=== PATIENT | female | born 2000 ===

== ENCOUNTER 2020-12-14 08:01 | Emergency (ER) | payer MEDICAID, SELFPAY ==
--- NOTE | ~2020-12-14 | CT_ITS ---
EXAMINATION: CT HEAD WITHOUT CONTRAST CLINICAL INFORMATION: 2 episodes of fainting/syncope. COMPARISON: None TECHNIQUE: Contiguous axial imaging was performed from the skull base to vertex without intravenous administration of contrast. Additional 2-D coronal and sagittal reformatted images are generated on the CT workstation and uploaded to PACS. This CT examination was performed using dose optimization techniques as appropriate, variously including the following: *Automated exposure control *Adjustment of mA and/or kV according to patient size (this includes techniques or standardized protocols for targeted exams where dose is matched to indication/reason for exam; i.e. extremities or head) *Use of iterative reconstruction technique DLP: 603 mGy-cm FINDINGS: There is no intracranial hemorrhage, hematoma, or extra-axial fluid collection. The ventricles are normal in size. There is no hydrocephalus, edema, or mass effect. The salgado-white matter differentiation appears symmetric. There is no visible acute territorial infarct or mass lesion. The calvarium appears intact. There is no pneumocephalus or orbital emphysema. The visualized sinuses and middle ears and mastoid air cells show no significant mucosal thickening. There are no air-fluid levels. CT/CT head/brain wo con IMPRESSION: Normal study.
--- NOTE | ~2020-12-14 | XR_ITS ---
EXAMINATION: XR CHEST CLINICAL INFORMATION: Chest pain, shortness of breath. Upper abdominal pain. Fainting episodes. COMPARISON: None TECHNIQUE: Portable upright AP view of the chest was obtained. FINDINGS: The lungs are clear. There is no airspace consolidation. No pneumothorax or pleural reaction or effusion. No free air beneath the diaphragms. The heart is normal in size. The hilar and mediastinal contours and visualized bony structures are unremarkable. XR/XR chest 1V IMPRESSION: Unremarkable examination.
--- NOTE | ~2020-12-14 | US_ITS ---
EXAMINATION: US ABDOMEN LIMITED CLINICAL INFORMATION: Upper abdominal pain for 3 days. COMPARISON: None TECHNIQUE: Real-time imaging of the right upper quadrant abdominal viscera. FINDINGS: PANCREAS: The visualized pancreas is normal in size and contour and echogenicity. There is no pancreatic ductal distention or retroperitoneal effusion. Portion pancreatic tail obscured by bowel gas and not completely imaged. LIVER: Normal. The liver is normal in size. The liver contour is normal. Parenchymal echogenicity is normal. No focal hepatic lesion. There is no intrahepatic biliary duct dilatation seen. Color Doppler shows portal flow towards the liver. GALLBLADDER: Normal. The gallbladder is physiologically distended without evidence of stones, sludge, polyps, wall thickening or pericholecystic fluid. Negative sonographic Rodriguez's sign. COMMON BILE DUCT: Normal in caliber measuring 0.4 cm in diameter. RIGHT KIDNEY: Normal. No hydronephrosis. No renal calculi or focal parenchymal lesions. The kidney measures 10.2 cm in maximum dimension. FREE FLUID: None. US/US abdomen limited IMPRESSION: Normal study.
[2020-12-14 08:06] VITALS: BP 142/78; PULSE 98; RESP 16; TEMP 36.6; O2SAT 98; BMI 26.2
--- NOTE | 2020-12-14 08:33 | ECG_ITS ---
Test Reason : ABDOMINAL PAIN Blood Pressure : / mmHG Vent. Rate : 074 BPM Atrial Rate : 074 BPM P-R Int : 150 ms QRS Dur : 074 ms QT Int : 376 ms P-R-T Axes : 064 059 041 degrees QTc Int : 417 ms Normal sinus rhythm with sinus arrhythmia Normal ECG No previous ECGs available Referred By: Frieda Pereira Electronically Signed By:CONSUELO JOAQUIN MD
--- NOTE | 2020-12-14 09:04 | ED_ITS ---
HPI - Abdominal Pain General Chief Complaint: Abdominal Pain Stated Complaint: ABD PAIN Time Seen by Provider: 12/14/20 08:24 Source: patient Mode of arrival: ambulatory Limitations: no limitations History of Present Illness HPI narrative: 20-year-old female with no significant past medical history presenting to the ED with complaints of nausea/vomiting/diarrhea with upper abdominal pain and 2 fainting episodes over the past 3 days where she felt like she lost her breath for about 5 minutes and she also noted stabbing left-sided chest pain. She reports that this initially started approximately 3 days ago when she ate some greasy pizza she started having some abdominal pain and some diarrhea then she went back home and ate some pasta and started having some nausea vomiting she reports she was not feeling well therefore she laid down in her bed and at this time she passed out for approximately 5-8 minutes. She reports she knows that she passed out because her vision went completely black and she had ringing in her ears. She reports that the diarrhea although the upper abdominal pain is still present. She reports that this morning when she woke up from her bed she did not feel her normal self and she had another fainting episode when she went to get up from the bed for approximately 5-8 minutes where her vision went black and her ears were ringing and she felt like she cannot catch her breath. She also reports a dry cough for the past few days. She reports approximately 2 years ago she had similar episodes to this where she would be in the shower and she would pass out and her father would be in her face with a fan. She reports that her grandmother told her that they have a family history of low blood pressures. She denies any fevers, chills, dizziness, headaches, neck pain/stiffness, head trauma, falls, dyspnea on exertion/orthopnea, palpitations, radiation of the abdominal pain, back pain, dysuria, hematuria, black or bloody stools, black or bloody emesis, recent travel or sick contacts, history of DVT or PE, any estrogen uses, recent immobilization or surgery, recent travel on a plane/train/car ride, history of cancer, lower extremity edema or calf tenderness, any drug usage such as IV drugs or any other complaints or concerns at this time. She denies any sick contacts. She denies being on any blood thinners. MD elicited complaint: abdominal pain Onset (ago): day(s) (Three days) Pain Consistency: constant (The abdominal pain has been constant) Location: epigastric, LUQ and RUQ Severity: mild Quality: aching Radiation: none Migration to: no migration Exacerbating factors: nothing Relieving factors: nothing Associated symptoms: nausea, vomiting, diarrhea and other (Cough, left-sided chest pain, shortness of breath, two fainting episodes) Related Data Previous Rx's Medication Instructions Recorded hydroxyzine HCl 25 mg tablet 25 mg PO Q8H PRN #10 tab 12/14/20 ondansetron HCl 4 mg tablet 4 mg PO Q8H PRN #14 tab 12/14/20 (Zofran) Allergies Allergy/AdvReac Type Severity Reaction Status Date / Time No Known Allergies Allergy Verified 12/14/20 08:33 Review of Systems Review of Systems Constitutional : No Weight loss, No Fever, No Chills, No Night Sweats, No Fatigue, No Malaise ENT/Mouth : No Hearing loss, No Ear Pain, No Nasal Congestion, No Sinus Pain, No Hoarseness, No sore throat, No Rhinorrhea, No Swallowing Difficulty Eyes: No Eye Pain, No Swelling, No Redness, No Foreign Body, No Discharge, No Vision Changes Cardiovascular : Positive chest pain with shortness of breath, No Dyspnea on Exertion, No Orthopnea, No Edema, No Palpitations Respiratory : Positive Cough, No Sputum, No Wheezing, No Smoke Exposure, No Dyspnea Gastrointestinal : Positive Nausea, positive Vomiting, positive Diarrhea, No Constipation, positive abdominal Pain, No Hematochezia, No Melena Genitourinary : no irregular bleeding, No Dysuria, No Urinary Frequency, No Hematuria, No Urinary Incontinence, No Urgency, No Flank Pain, No Urinary Flow Changes, No Hesitancy Musculoskeletal : No joint pain, No Myalgias, No Joint Swelling Skin : No Skin Lesions, No rash Neuro : Positive syncopal episodes with loss of consciousness, no head injury, not on any blood thinners, No Weakness, No Numbness, No Paresthesias, No Dizziness, No Headache Psych : No Anxiety/Panic, No Depression, No SI/HI/AH/VH, No Social Issues, Heme/Lymph: No Bruising, No Bleeding,No Lymphadenopathy Endocrine : No Polyuria, No Polydipsia, No Temperature Intolerance Yes all other systems are reviewed and are negative Physical Exam Vital Signs: Vital Signs: Last Vital Signs Temp 99.1 F 12/14/20 09:10 Pulse 76 12/14/20 11:29 Resp 16 12/14/20 09:10 BP 116/70 12/14/20 11:29 Pulse Ox 99 12/14/20 11:29 Body Mass Index 26.2 vital signs have been reviewed as normal and appeared to be correct. Blood pressure normal. Heart rate normal. Respiration rate normal. Temperature normal. Oxygen saturation normal. Appearance: Alert. Oriented X3. No acute distress. Head: Normal external exam. Normocephalic. Atraumatic. Able to rotate head bilaterally. Eyes: PERRLA. EOMI. No nystagmus noted. Conjunctiva and sclera normal. Eyelids normal. Corneal reflex normal. ENT: EAC normal. TM's Normal. Hearing normal. Pharynx normal. Uvula midline. tongue midline. Moist mucous membranes. No trismus noted. No drooling noted. No muffled voice noted. No nystagmus noted. Neck: Normal inspection. Neck supple. FROM. No adenopathy. Trachea midline. Thyroid Normal. No meningeal signs. No neck mass noted. CVS: Normal heart rate and rhythm. Heart sound normal. No murmurs noted. Pulses normal throughout. Respiratory: No respiratory distress. Painless inspiration. Breath sounds normal. No wheezes/rales/rhonchi noted. Chest nontender. No accessory muscle usage noted or decreased air movement noted. Abdomen: Soft and mild sinus up patient to epigastric/left upper quadrant/right upper quadrant of the abdomen. Nondistended. No guarding. No rigidity. Bowel sounds normal in all 4 quadrants. No distention noted. No organomegaly noted. No visible injury noted. No rebound tenderness. Negative Rovsing sign. Negative obturator's sign. Negative psoas sign. Negative Rodriguez sign. Back: No CVA tenderness. Full range of motion noted. Skin: Skin warm and dry. Normal skin color. Normal skin turgor. No rashes/lesions/lacerations noted. Extremities: No lower extremity edema. Extremities exhibit normal range of motion. Extremities nontender. Able to shrug shoulders bilaterally and keep up against resistance. Neuro: Oriented X 3. No motor deficit. No sensory deficit. Reflexes normal. Moving all extremities. No focal motor deficits. Cranial nerves II-XI intact bilaterally. Facial strength normal. Normal cognition. Speech normal. Gait normal. Strength 5/5 throughout. No tremor noted. No fasciculations noted. No rigidity noted. Muscle tone normal throughout. No asterixis noted. Vascular: + radial pulses/+ 2 distal pedal pulses/+2 dorsalis pedis b/l. Normal cap refill. No cyanosis noted to upper extremity nails and lower extremity toes nails. Course Course Course Narrative: 8:30am - 20-year-old female with no significant past medical history presenting to the ED with complaints of nausea/vomiting/diarrhea with upper abdominal pain and 2 fainting episodes that last approximately 5-8 minutes were all she sees is black and has ringing in her ears over the past 3 days where she felt like she lost her breath for about 5-8 minutes and she also noted stabbing left-sided chest pain. She reports associated cough. On exam patient is alert and oriented x3. Not in any acute distress. No focal neuro deficit noted. Vital signs are stable within normal limits. Lungs clear to auscultation. CV RRR. Abdomen is soft and nontender. No CVA tenderness is noted. No lower extremity edema is noted. No calf tenderness is noted. Plan: Labs, chest x-ray, D-dimer, EKG, test, orthostatic vitals, abdominal ultrasound, CT scan of brain if negative and possibly a CTA of chest for PE if elevated D-dimer, provided a L of IV fluids then re-evaluate. Reevaluation(s) Reevaluation #1: - labs Returned all within normal limits. Serum quant negative. UA negative for UTI. Patient positive for marijuana negative for all other drugs. Negative for COVID. - CT scan of brain without contrast negative for any acute processes. Abdominal ultrasound negative for any acute processes. Chest x-ray negative for any acute processes. - therefore patient most likely viral syndrome and vasovagal syncope no indication to admit the patient at this time will DC home with instructions to follow-up with her primary care provider and with possibly Neurology and to ret urn if any new or worsening symptoms. Patient understands agrees with this plan. Time: 11:59 MDM - Abdominal Pain Medical Records Attestation: I reviewed the patient's medical records. Lab Data Attestation: I reviewed the patient's lab results. Result diagrams: 12/14/20 10:03 12/14/20 10:03 Labs: Lab Results 12/14/20 12/14/20 12/14/20 Range/Units 10:02 10:03 10:03 WBC 9.6 (4.8-10.8) X10*3/uL RBC 4.47 (4.20-5.50) X10*6/uL Hgb 13.0 (12.0-16.0) g/dl Hct 38.8 (37.0-47.0) % MCV 86.8 (80.0-98.0) fL MCH 29.1 (27.0-33.0) pg MCHC 33.5 (31.0-35.0) g/dl RDW 13.3 (11.0-16.0) % Plt Count 261 (160-400) X10*3/uL MPV 10.1 (9.4-12.3) fL Immature Gran % (Auto) 0.2 (0.0-0.4) % Neut % (Auto) 69.3 (45-73) % Lymph % (Auto) 23.0 (20-40) % Mercer % (Auto) 6.6 (2-11) % Eos % (Auto) 0.7 (0-4) % Baso % (Auto) 0.2 (0-2) % Lymph # (Auto) 2.2 (1.2-4.9) X10*3/uL Mercer # (Auto) 0.6 (0.1-1.2) X10*3/uL Eos # (Auto) 0.1 (0.0-0.4) X10*3/uL Baso # (Auto) 0.0 (0.0-0.2) X10*3/uL Abs Immat Gran (auto) 0.02 (0.00-0.03) X10*3/uL Absolute Neuts (auto) 6.61 (2.0-8.3) x10*3/uL Absolute Nucleated RBC 0.000 (0.0-0.012) X10*3/uL Nucleated RBC % (auto) 0.0 (0.0-0.2) /100WBC PT 12.1 (9.9-13.0) SEC INR 1.1 (0.9-1.1) D-Dimer < 200 NG/ML Sodium (135-145) mmol/L Potassium (3.3-5.1) mmol/L Chloride (96-108) mmol/L Carbon Dioxide (22-29) mmol/L Anion Gap (12-20) BUN (9-16) mg/dL Creatinine (0.5-1.4) mg/dL Estim Creat Clear Calc Estimated GFR Random Glucose (60-115) mg/dL Calcium (8.4-10.2) mg/dL Magnesium (1.6-2.6) mg/dL Total Bilirubin (0.0-1.0) mg/dL AST (5-31) U/L ALT (0-31) U/L Alkaline Phosphatase (39-117) U/L Total Creatine Kinase (26-140) U/L Troponin I High Sens (<3.5-17.0) ng/L Total Protein (6.5-8.0) g/dL Albumin (3.5-5.0) g/dL Lipase (8-78) U/L Beta HCG, Quant mIU/mL Urine Color YELLOW Urine Appearance HAZY Urine pH 8.0 (5.0-8.0) Ur Specific [place] 1.010 (1.005-1.025) Urine Protein NEG (NEG-TRACE) MG/DL Urine Glucose (UA) NEG (NEG) MG/DL Urine Ketones NEG (NEG) MG/DL Urine Blood NEG (NEG) Urine Nitrite NEG (NEG) Ur Leukocyte Esterase NEG (NEG) Urine Opiates Screen (Not Detect) Urine Fentanyl Screen (Not Detect) Ur Barbiturates Screen (Not Detect) Ur Phencyclidine Scrn (Not Detect) Ur Amphetamines Screen (Not Detect) U Benzodiazepines Scrn (Not Detect) Urine Cocaine Screen (Not Detect) U Marijuana (THC) Screen (Not Detect) COVID-19 (ODALYS) (Negative) COVID-19 Clin Com 12/14/20 12/14/20 12/14/20 Range/Units 10:03 10:03 10:03 WBC (4.8-10.8) X10*3/uL RBC (4.20-5.50) X10*6/uL Hgb (12.0-16.0) g/dl Hct (37.0-47.0) % MCV (80.0-98.0) fL MCH (27.0-33.0) pg MCHC (31.0-35.0) g/dl RDW (11.0-16.0) % Plt Count (160-400) X10*3/uL MPV (9.4-12.3) fL Immature Gran % (Auto) (0.0-0.4) % Neut % (Auto) (45-73) % Lymph % (Auto) (20-40) % Mercer % (Auto) (2-11) % Eos % (Auto) (0-4) % Baso % (Auto) (0-2) % Lymph # (Auto) (1.2-4.9) X10*3/uL Mercer # (Auto) (0.1-1.2) X10*3/uL Eos # (Auto) (0.0-0.4) X10*3/uL Baso # (Auto) (0.0-0.2) X10*3/uL Abs Immat Gran (auto) (0.00-0.03) X10*3/uL Absolute Neuts (auto) (2.0-8.3) x10*3/uL Absolute Nucleated RBC (0.0-0.012) X10*3/uL Nucleated RBC % (auto) (0.0-0.2) /100WBC PT (9.9-13.0) SEC INR (0.9-1.1) D-Dimer NG/ML Sodium 141 (135-145) mmol/L Potassium 3.5 (3.3-5.1) mmol/L Chloride 106 (96-108) mmol/L Carbon Dioxide 26 (22-29) mmol/L Anion Gap 13 (12-20) BUN 6 L (9-16) mg/dL Creatinine 0.67 (0.5-1.4) mg/dL Estim Creat Clear Calc 104.6 Estimated GFR > 60 Random Glucose 88 (60-115) mg/dL Calcium 9.0 (8.4-10.2) mg/dL Magnesium 2.0 (1.6-2.6) mg/dL Total Bilirubin 0.4 (0.0-1.0) mg/dL AST 13 (5-31) U/L ALT 6 (0-31) U/L Alkaline Phosphatase 54 (39-117) U/L Total Creatine Kinase 70 (26-140) U/L Troponin I High Sens < 3.5 (<3.5-17.0) ng/L Total Protein 7.0 (6.5-8.0) g/dL Albumin 4.4 (3.5-5.0) g/dL Lipase 20 (8-78) U/L Beta HCG, Quant < 2 mIU/mL Urine Color Urine Appearance Urine pH (5.0-8.0) Ur Specific [place] (1.005-1.025) Urine Protein (NEG-TRACE) MG/DL Urine Glucose (UA) (NEG) MG/DL Urine Ketones (NEG) MG/DL Urine Blood (NEG) Urine Nitrite (NEG) Ur Leukocyte Esterase (NEG) Urine Opiates Screen (Not Detect) Urine Fentanyl Screen (Not Detect) Ur Barbiturates Screen (Not Detect) Ur Phencyclidine Scrn (Not Detect) Ur Amphetamines Screen (Not Detect) U Benzodiazepines Scrn (Not Detect) Urine Cocaine Screen (Not Detect) U Marijuana (THC) Screen (Not Detect) COVID-19 (ODALYS) (Negative) COVID-19 Clin Com 12/14/20 12/14/20 Range/Units 10:03 10:03 WBC (4.8-10.8) X10*3/uL RBC (4.20-5.50) X10*6/uL Hgb (12.0-16.0) g/dl Hct (37.0-47.0) % MCV (80.0-98.0) fL MCH (27.0-33.0) pg MCHC (31.0-35.0) g/dl RDW (11.0-16.0) % Plt Count (160-400) X10*3/uL MPV (9.4-12.3) fL Immature Gran % (Auto) (0.0-0.4) % Neut % (Auto) (45-73) % Lymph % (Auto) (20-40) % Mercer % (Auto) (2-11) % Eos % (Auto) (0-4) % Baso % (Auto) (0-2) % Lymph # (Auto) (1.2-4.9) X10*3/uL [place] # (Auto) (0.1-1.2) X10*3/uL Eos # (Auto) (0.0-0.4) X10*3/uL Baso # (Auto) (0.0-0.2) X10*3/uL Abs Immat Gran (auto) (0.00-0.03) X10*3/uL Absolute Neuts (auto) (2.0-8.3) x10*3/uL Absolute Nucleated RBC (0.0-0.012) X10*3/uL Nucleated RBC % (auto) (0.0-0.2) /100WBC PT (9.9-13.0) SEC INR (0.9-1.1) D-Dimer NG/ML Sodium (135-145) mmol/L Potassium (3.3-5.1) mmol/L Chloride (96-108) mmol/L Carbon Dioxide (22-29) mmol/L Anion Gap (12-20) BUN (9-16) mg/dL Creatinine (0.5-1.4) mg/dL Estim Creat Clear Calc Estimated GFR Random Glucose (60-115) mg/dL Calcium (8.4-10.2) mg/dL Magnesium (1.6-2.6) mg/dL Total Bilirubin (0.0-1.0) mg/dL AST (5-31) U/L ALT (0-31) U/L Alkaline Phosphatase (39-117) U/L Total Creatine Kinase (26-140) U/L Troponin I High Sens (<3.5-17.0) ng/L Total Protein (6.5-8.0) g/dL Albumin (3.5-5.0) g/dL Lipase (8-78) U/L Beta HCG, Quant mIU/mL Urine Color Urine Appearance Urine pH (5.0-8.0) Ur Specific [place] (1.005-1.025) Urine Protein (NEG-TRACE) MG/DL Urine Glucose (UA) (NEG) MG/DL Urine Ketones (NEG) MG/DL Urine Blood (NEG) Urine Nitrite (NEG) Ur Leukocyte Esterase (NEG) Urine Opiates Screen Not Detected (Not Detect) Urine Fentanyl Screen Not Detected (Not Detect) Ur Barbiturates Screen Not Detected (Not Detect) Ur Phencyclidine Scrn Not Detected (Not Detect) Ur Amphetamines Screen Not Detected (Not Detect) U Benzodiazepines Scrn Not Detected (Not Detect) Urine Cocaine Screen Not Detected (Not Detect) U Marijuana (THC) Screen POSITIVE H (Not Detect) COVID-19 (ODALYS) Negative (Negative) COVID-19 Clin Com See Note Imaging Data Chest x-ray: Attestation: I personally reviewed and interpreted this imaging study as follows: Radiologist's impression: FINDINGS: The lungs are clear. There is no airspace consolidation. No pneumothorax or pleural reaction or effusion. No free air beneath the diaphragms. The heart is normal in size. The hilar and mediastinal contours and visualized bony structures are unremarkable. XR/XR chest 1V IMPRESSION: Unremarkable examination. CT scan of brain without contrast: Attestation: I personally reviewed and interpreted this imaging study as follows: Radiologist's impression: FINDINGS: There is no intracranial hemorrhage, hematoma, or extra-axial fluid collection.? The ventricles are normal in size. There is no hydrocephalus, edema, or mass effect.? The salgado-white matter differentiation appears symmetric.? There is no visible acute territorial infarct or mass lesion. The calvarium appears intact. There is no pneumocephalus or orbital emphysema.? The visualized sinuses and middle ears and mastoid air cells show no significant mucosal thickening. There are no air-fluid levels. CT/CT head/brain wo con IMPRESSION: Normal study. Abdominal ultrasound: Attestation: I personally reviewed and interpreted this imaging study as follows: Radiologist's impression: FINDINGS: PANCREAS: The visualized pancreas is normal in size and contour and echogenicity. There is no pancreatic ductal distention or retroperitoneal effusion. Portion pancreatic tail obscured by bowel gas and not completely imaged. LIVER: Normal. The liver is normal in size. The liver contour is normal. Parenchymal echogenicity is normal. No focal hepatic lesion. There is no intrahepatic biliary duct dilatation seen. Color Doppler shows portal flow towards the liver. GALLBLADDER: Normal. The gallbladder is physiologically distended without evidence of stones, sludge, polyps, wall thickening or pericholecystic fluid. Negative sonographic Rodriguez's sign. COMMON BILE DUCT: Normal in caliber measuring 0.4 cm in diameter. RIGHT KIDNEY: Normal. No hydronephrosis. No renal calculi or focal parenchymal lesions. The kidney measures 10.2 cm in maximum dimension. FREE FLUID: None. US/US abdomen limited IMPRESSION: Normal study. ECG Data Attestation: I personally reviewed and interpreted this ECG as follows: ECG interpretation date: 12/14/20 ECG interpretation time: 09:03 Interpretation: Normal sinus rhythm with sinus arrhythmia with a ventricular rate of 74 with a normal UT interval normal QRS duration normal QT/QTC interval. No acute ischemic changes are noted. No prior EKGs in our system to compare to at this time. Critical Care Time Critical Care Time Critical Care Time: Yes Total Critical Care Time: 60 Attestation: I personally attest to this time spent taking care of the patient Discharge Plan Discharge Clinical Impression: Syncope, Abdominal pain, Nausea & vomiting, Diarrhea, Atypical chest pain Patient Disposition: Home, Self-Care Instructions: Syncope (ED), Acute Nausea and Vomiting (ED), Acute Diarrhea (ED), Abdominal Pain (ED), Noncardiac Chest Pain (ED) Prescriptions: New ondansetron HCl [Zofran] 4 mg tablet 4 mg PO Q8H PRN (Reason: nausea and vomiting) Qty: 14 RF: 0 hydroxyzine HCl 25 mg tablet 25 mg PO Q8H PRN (Reason: nausea and vomiting and anxiety) Qty: 10 RF: 0 Referrals: Preet Whatley MD [Physician] - 2 weeks (Follow-up with a primary care provider 1st if not call within 2-3 weeks to make a follow-up appointment with Neurology) Physician,None [Primary Care Provider] - 2 days (your pcp) Stand Alone Forms: Work/School Release Print Language: [place] [facility] Past Medical History Attestation statement: The following information was validated with the patient. Medical History No known health problems Social History Social History Alcohol intake: never Patient Tobacco Use Status: Never used Tobacco Use of substances other than those prescribed or required for medical reasons: Yes Substance Use Type: Marijuana Advance Directives: No Advance Directives Information Provided: No Patient : No
[2020-12-14 09:07] VITALS: BP 107/69; PULSE 75
[2020-12-14 09:08] VITALS: BP 109/72; PULSE 75
[2020-12-14 09:09] VITALS: BP 117/79; PULSE 81
[2020-12-14 09:10] VITALS: BP 118/83; PULSE 89; RESP 16; TEMP 37.3; O2SAT 100
[2020-12-14] MEDS: 0.9 % Sodium Chloride 1,000 ML 999 ML IVCONT (10:01)
[2020-12-14 10:09] LABS: MANUAL DIFF FLAG NO
[2020-12-14 10:11] LABS: Basophils Percent Auto 0.2 % (0-2); Eosinophils Absolute Auto 0.1 X10*3/uL (0.0-0.4); Eosinophils Percent Auto 0.7 % (0-4); Hematocrit 38.8 % (37.0-47.0); Imm Gran Abs Auto 0.02 X10*3/uL (0.00-0.03); Imm Gran Pct Auto 0.2 % (0.0-0.4); Lymphocytes Absolute Auto 2.2 X10*3/uL (1.2-4.9); Mean Corpuscular HGB Conc 33.5 g/dl (31.0-35.0); Mean Corpuscular Hemoglobin 29.1 pg (27.0-33.0); Mean Corpuscular Volume 86.8 fL (80.0-98.0); Mean Platelet Volume 10.1 fL (9.4-12.3); Monocytes Absolute Auto 0.6 X10*3/uL (0.1-1.2); Monocytes Percent Auto 6.6 % (2-11); Neutrophils Absolute Auto 6.61 x10*3/uL (2.0-8.3); Neutrophils Percent Auto 69.3 % (45-73); Platelet Count 261 X10*3/uL (160-400); Red Blood Count 4.47 X10*6/uL (4.20-5.50); Red Cell Distribution Width 13.3 % (11.0-16.0); White Blood Count 9.6 X10*3/uL (4.8-10.8)
[2020-12-14 10:18] LABS: Appearance Urine HAZY; Color Urine YELLOW; Glucose Urine UA NEG (NEG); Leukocyte Esterase Urine NEG (NEG); Nitrite Urine NEG (NEG); Urine Blood NEG (NEG); Urine Ketones NEG (NEG); Urine Protein NEG (NEG-TRACE)
[2020-12-14 10:21] LABS: INTERNATIONAL NORM RATIO 1.1 (0.9-1.1); Prothrombin Time 12.1 SEC (9.9-13.0)
[2020-12-14 10:26] LABS: COVID-19 Test Negative (Negative)
[2020-12-14 10:27] LABS: D Dimer < 200 NG/ML
[2020-12-14 10:29] LABS: Lipase 20 U/L (8-78)
[2020-12-14 10:30] LABS: Amphetamine Screen Urine Not Detected (Not Detect); Barbiturates, Urine Not Detected (Not Detect); Benzodiazepines Screen Urine Not Detected (Not Detect); Cannabinoid Screen Urine POSITIVE (Not Detect); Cocaine Screen Urine Not Detected (Not Detect); Fentanyl, urine Not Detected (Not Detect); Opiate Screen Urine Not Detected (Not Detect); Phencyclidine Screen Urine Not Detected (Not Detect)
[2020-12-14 10:32] LABS: Alanine Aminotransferase 6 U/L (0-31); Albumin Level 4.4 g/dL (3.5-5.0); Alkaline Phosphatase 54 U/L (39-117); Anion Gap 13 (12-20); Aspartate Amino Transferase 13 U/L (5-31); Bilirubin Total 0.4 mg/dL (0.0-1.0); Blood Urea Nitrogen 6 mg/dL (9-16); Carbon Dioxide 26 mmol/L (22-29); Chloride 106 mmol/L (96-108); Creatinine Clr Calc Pharmacy 104.6; Estimated Glomerular Filt Rate > 60; Glucose Random 88 mg/dL (60-115); Potassium 3.5 mmol/L (3.3-5.1); Sodium 141 mmol/L (135-145)
--- NOTE | 2020-12-14 10:34 | PC.NURSE ---
c/o upper abd pain and at times panick attacks during n/v. aware of plan of care. no active vomiting in ed thus far. skin pwd. abd soft non tender. moist mm'
[2020-12-14 10:35] LABS: Troponin-I High Sensitivity < 3.5 ng/L (<3.5-17.0)
[2020-12-14 10:36] LABS: HCG Quantitative < 2 mIU/mL
--- NOTE | 2020-12-14 10:43 | ECG_ITS ---
Test Reason : SYNCOPE Blood Pressure : / mmHG Vent. Rate : 074 BPM Atrial Rate : 074 BPM P-R Int : 140 ms QRS Dur : 076 ms QT Int : 402 ms P-R-T Axes : 065 064 048 degrees QTc Int : 446 ms Normal sinus rhythm Normal ECG No significant changes seen Referred By: Frieda Pereira Electronically Signed By:CONSUELO JOAQUIN MD
--- NOTE | 2020-12-14 10:49 | PC.NURSE ---
steady gait to BR. no neuro deficits. NAD. awaits results.
[2020-12-14 11:29] VITALS: BP 116/70; PULSE 76; O2SAT 99
== END 2020-12-14 13:02 | disposition home or self-care (01) ==
PROVIDERS: Physician Assistant Medical; Emergency Provider Emergency Medicine
DX: R55 Syncope and collapse (principal); R10.9 Unspecified abdominal pain; R11.2 Nausea with vomiting, unspecified; R19.7 Diarrhea, unspecified; R07.89 Other chest pain; Z20.822 Contact with and (suspected) exposure to COVID-19
CPT/HCPCS: 36415; 70450; 71045; 76705; 80053; 80307; 81003; 82550; 83690; 83735; 84484; 84702; 85025; 85379; 85610; 87635; 93005; 96360; 99285; 99291

== ENCOUNTER 2020-12-21 17:06 | Emergency (ER) | payer SELFPAY | END 2020-12-21 18:05 | disposition left against medical advice (07) | PROVIDERS: Emergency Provider Emergency Medicine | DX: R09.89 Other specified symptoms and signs involving the circulatory and respiratory systems (principal) ==

== ENCOUNTER 2021-10-07 21:10 | Emergency (ER) | payer OTHER, MEDICAID, SELFPAY ==
[2021-10-07 21:58] VITALS: BP 140/87; PULSE 85; RESP 15; TEMP 36.7; O2SAT 100; BMI 29.2
--- NOTE | 2021-10-08 00:42 | ED.LOWEXIN ---
HPI - Extremity Injury (Lower) General Chief Complaint: Extremity Injury, Lower Stated Complaint: leg nerve pain Related Data Previous Rx's Medication Instructions Recorded hydroxyzine HCl 25 mg tablet 25 mg PO Q8H PRN nausea and 12/14/20 vomiting and anxiety #10 tabs ondansetron HCl 4 mg tablet 4 mg PO Q8H PRN nausea and 12/14/20 (Zofran) vomiting #14 tabs Allergies Allergy/AdvReac Type Severity Reaction Status Date / Time No Known Allergies Allergy Verified 10/07/21 21:58 [facility] Past Medical History Attestation statement: The following information was validated with the patient. Source: old records reviewed Medical History No known health problems Social History Social History Alcohol intake: never Patient Tobacco Use Status: Never used Tobacco Smoked in Last 30 Days: No Use of substances other than those prescribed or required for medical reasons: No Substance Use Type: Marijuana Advance Directives: No Advance Directives Information Provided: Yes Physical Exam Vital Signs: Vital Signs: Last Vital Signs Temp 98.1 F 10/07/21 21:58 Pulse 85 10/07/21 21:58 Resp 15 10/07/21 21:58 BP 140/87 H 10/07/21 21:58 Pulse Ox 100 10/07/21 21:58 O2 Del Method 10/07/21 21:58 BMI result Body Mass Index 29.2 Course Course Course Narrative: 21-year-old female presents with right-sided sciatica and lower back pain. States that she has had this for approximately 1 month and symptoms are getting worse. States that it is difficult for her to sit down. Reports that when she moves her neck that her leg hurts. Patient also states to be late with her menstrual cycle, will order urinalysis and U preg prior to x-rays. Patient is ambulatory, has full range of motion to all of her extremities, gait is well balanced well coordinated. Afebrile. Appears nontoxic. 01:40 U preg is negative. Order for hip and lumbar spine x-rays. 01:50 patient left without completing treatment. MDM - Extremity Injury (Lower) [facility] Narrative Medical decision making narrative: Disc herniation, sciatica, disc degeneration Medical Records Attestation: I reviewed the patient's medical records. Lab Data Attestation: I reviewed the patient's lab results. Labs: Lab Results 10/08/21 10/08/21 Range/Units 01:01 01:01 Urine Color Yellow Urine Appearance Clear Urine pH 7.0 (5.0-8.0) Ur Specific [place] 1.010 (1.005-1.025) Urine Protein Negative (Neg-Trace) mg/dL Urine Glucose (UA) Negative (Negative) mg/dL Urine Ketones Negative (Negative) mg/dL Urine Blood Small (1+) H (Negative) Urine Nitrite Negative (Negative) Ur Leukocyte Esterase Negative (Negative) Urine RBC 0-2 (0-2) /HPF Urine WBC 0-5 (0-5) /HPF Ur Squamous Epith Cells 6-10 (0-2) /HPF Urine Bacteria 1+ (None Seen) Hyaline Casts 0-2 (0-2) /LPF Urine Test NEGATIVE (NEGATIVE) Discharge Plan Discharge Clinical Impression: Sciatica Patient Disposition: Elopement Prescriptions: No Action ondansetron HCl [Zofran] 4 mg tablet 4 mg PO Q8H PRN (Reason: nausea and vomiting) Qty: 14 0RF hydroxyzine HCl 25 mg tablet 25 mg PO Q8H PRN (Reason: nausea and vomiting and anxiety) Qty: 10 0RF
[2021-10-08 01:08] LABS: Appearance Urine Clear; Color Urine Yellow; Glucose Urine UA Negative (Negative); Leukocyte Esterase Urine Negative (Negative); Nitrite Urine Negative (Negative); Urine Blood Small (1+) (Negative); Urine Ketones Negative (Negative); Urine Protein Negative (Neg-Trace)
[2021-10-08 01:10] LABS: UPreg QC Valid YES; Urine Pregnancy NEGATIVE (NEGATIVE)
[2021-10-08 01:17] LABS: Bacteria Urine 1+ (None Seen); Hyaline Casts Urine 0-2 /LPF (0-2); RBC Urine 0-2 /HPF (0-2); WBC Urine 0-5 /HPF (0-5)
--- NOTE | 2021-10-08 02:03 | PC.NURSE ---
Patient is not in the exam room at this time. Her mother and all belongings are gone also. Will check WR and bathrooms ??kevinoped
== END 2021-10-08 03:01 | disposition home or self-care (01) ==
PROVIDERS: Nurse Practitioner Family; Emergency Provider Internal Medicine
DX: M54.41 Lumbago with sciatica, right side (principal); Z79.899 Other long term (current) drug therapy
CPT/HCPCS: 81001; 81025; 99283; 99284

== ENCOUNTER → 2022-06-20 08:37 | Outpatient (BNVA) | payer OTHER, SELFPAY | PROVIDERS: Visit Provider Advanced Practice Midwife | DX: N92.6 Irregular menstruation, unspecified (principal); Z32.01 Encounter for pregnancy test, result positive; Z3A.09 9 weeks gestation of pregnancy | CPT/HCPCS: 81025; 99202 ==

== ENCOUNTER 2022-06-27 13:28 | Outpatient (REF) | payer OTHER, SELFPAY ==
--- NOTE | ~2022-06-27 | US_ITS ---
EXAMINATION: US OBSTETRICAL ULTRASOUND CLINICAL INFORMATION: Irregular periods. Size and dates. COMPARISON: None available. LMP: 04/17/2022. Gestational age by maternal dates is 10 weeks 1 day. Estimated date of delivery by maternal dates is 01/22/2023. TECHNIQUE: Both transabdominal and endovaginal scanning was performed. FINDINGS: There is a single intrauterine gestational sac and embryo/fetus. No cardiac activity is seen. A yolk sac is not seen with certainty. There is no significant subchorionic hemorrhage or hematoma. CRL (crown rump length): 0.7 cm (6 weeks 5 days +/- 4 days). EVANGELINA (estimated date of delivery): 02/15/2023 +/- 4 days. MATERNAL ADNEXA: The right maternal ovary measures 2.4 x 2.5 x 1.4 cm. The left maternal ovary measures 2.0 x 1.4 x 1.5 cm. There is no significant maternal adnexal mass. No maternal pelvic ascites. US/US OB pelvic and transvaginal IMPRESSION: A gestational sac is seen and a probable pole is identified but a yolk sac is not seen. No cardiac activity is visualized. According to the size of the pole gestational age would be 6 weeks 5 days - at this time a heart beat should be visualized. Recommend correlation with hCG and repeat study in one week.
== END 2022-06-27 13:29 | disposition home or self-care (01) ==
LOC: HO.US 13:28
PROVIDERS: Visit Provider Advanced Practice Midwife
DX: O36.80X0 Pregnancy with inconclusive fetal viability, not applicable or unspecified (principal); O20.0 Threatened abortion; Z71.2 Person consulting for explanation of examination or test findings
CPT/HCPCS: 76801; 76817; 99212

== ENCOUNTER 2022-07-01 07:42 | Emergency (ER) | payer OTHER, SELFPAY ==
--- NOTE | ~2022-07-01 | US_ITS ---
EXAMINATION: US OBSTETRICAL ULTRASOUND CLINICAL INFORMATION: Abdominal pain. COMPARISON: None available. LMP: 04/17/2022. Gestational age by maternal dates is 10 weeks 1 day. Estimated date of delivery by maternal dates is 01/22/2023. TECHNIQUE: Transabdominal imaging of pelvis is performed. FINDINGS: There is a single intrauterine gestational sac with embryo/fetus, and cardiac activity. Yolk sac is not visualized. There is no significant subchorionic hemorrhage or hematoma. HR: Not visualized. CRL (crown rump length): 0.77 cm (6 weeks and 6 days). EVANGELINA (estimated date of delivery): 02/18/2023 +/- 4 days. Gestational age by first ultrasound 06/27/2022 is 7 weeks 2 days and 02/15/2023 EVANGELINA. MATERNAL ADNEXA: The right maternal ovary measures 2.7 x 1.8 x 2.1 cm. It appears unremarkable. The left maternal ovary measures 2.5 x 1.0 x 1.0 cm There is no significant maternal adnexal mass. No maternal pelvic ascites. US/US OB <= 14 weeks fetus IMPRESSION: 1. Single intrauterine gestation with ultrasound gestational age of 6 weeks and 6 days. 2. Estimated date of delivery is 02/18/2023 +/- 4 days. 3. Yolk sac is not visualized, likely collapsed and may be calcified.
[2022-07-01 07:50] VITALS: BP 135/105; PULSE 101; RESP 18; TEMP 36.6; O2SAT 100; BMI 28.1
--- NOTE | 2022-07-01 07:55 | ED_ITS ---
HPI - Abdominal Pain General Chief Complaint: Abdominal Pain Stated Complaint: abd pain Time Seen by Provider: 07/01/22 07:55 Source: patient and old records reviewed Mode of arrival: ambulatory Limitations: no limitations History of Present Illness HPI narrative: 22 yo with LMP 04/17/22 and recent U/S (06/27) showing no heart beat and growth measuring only 6w5d who presents to the ER for evaluation of lower abdominal pain that started yesterday and has been worsening. She reports it is associated with nausea and vomiting x1 last night. The pain got worse last night and this morning. She denies any vaginal bleeding of discharge but endorses urinary urgency and dysuria that also started yesterday. No fever or chills. She last saw OB on 06/27 with plan for repeat U/S this 07/04. They had di scussed the probability of missed and options for moving forward including natural passage, medications and possible D&C. MD elicited complaint: abdominal pain Pertinent past history: other (recently w/ no heart beat) Onset (ago): day(s) (1) Pain Consistency: constant Location: suprapubic Severity: moderate Quality: cramping Radiation: none Migration to: no migration Exacerbating factors: nothing Relieving factors: nothing Associated symptoms: nausea, vomiting and dysuria Related Data Previous Rx's Medication Instructions Recorded vitamin with calcium 1 tab PO DAILY #90 tabs 06/20/22 no.72-iron 27 mg-folic acid 1 mg tablet ( Vitamins Plus Low Iron) Allergies Allergy/AdvReac Type Severity Reaction Status Date / Time No Known Allergies Allergy Verified 06/20/22 08:43 Review of Systems Review of Systems Yes all other systems are reviewed and are negative [facility] Past Medical History Medical History (Updated 07/01/22 @ 09:49 by LORETA Barbosa) Anxiety Missed No known health problems with uncertain viability care in first trimester Social History Social History Alcohol intake: never Patient Tobacco Use Status: Never used Tobacco Substance Use Type: Marijuana Sexual orientation: Straight/Heterosexual Gender identity: Female Physical Exam ED Vital Signs: Vital Signs - 24 hr 07/01/22 07:50 Temperature 98 F Pulse Rate 101 H Respiratory Rate 18 Blood Pressure 135/105 H Pulse Oximetry 100 Oxygen Delivery Method Room Air BMI result Body Mass Index 28.1 Appearance: Alert. Oriented X3. No acute distress. Head: normocephalic, atraumatic. Eyes: Pupils equal, round and reactive to light. ENT: Pharynx normal. No tonsillar swelling or exudate. Neck: Normal inspection. Neck supple. CVS: Normal heart rate and rhythm. Pulses normal. Respiratory: No respiratory distress. Breath sounds normal. Abdomen: Soft with suprapubic tenderness, no rebound or guarding, normal active +BS x4. pelvic deferred Skin: Skin warm and dry. Normal skin color. Normal skin turgor. No rashes. Extremities: No lower extremity edema. No joint swelling. Neuro/psych: Oriented X 3. No motor deficit. No sensory deficit. CN II-XII intact. Normal speech and cognition. Flat affect Medical Decision Making Medical Decision Making [facility] Narrative: 22 yo female with LMP 3/8 and recent U/S showing no heart beat presents for evaluation of lower abd pain. US again showing no HR, yolk sac not visualized. No active bleeding. Pain improved with tylenol. Case d/w Dr. Guzman who would like the patient to go to the office now to discuss further treatment options. Patient updated on results and plan - pending UA and ABO/Rh factor then she can be discharged. Differential Diagnosis Differential Diagnoses: The differential diagnosis associated with the presentation includes missed , threatened miscarriage, IUP, UTI Consult Healthcare Provider Management of the patient was discussed with: Whiskey Regauger Dr. Guzman Lab Data [facility] Lab Attestation statement: I reviewed the patient's lab results. 07/01/22 07:56 07/01/22 07:56 Labs: Lab Results 07/01/22 07/01/22 07/01/22 Range/Units 07:56 07:56 07:56 WBC 9.0 (4.8-10.8) X10*3/uL RBC 4.23 (4.20-5.50) X10*6/uL Hgb 12.2 (12.0-16.0) g/dl Hct 35.4 L (37.0-47.0) % MCV 83.7 (80.0-98.0) fL MCH 28.8 (27.0-33.0) pg MCHC 34.5 (31.0-35.0) g/dl RDW 13.4 (11.0-16.0) % Plt Count 249 (160-400) X10*3/uL MPV 9.4 (9.4-12.3) fL Absolute Nucleated RBC 0.000 (0.0-0.012) X10*3/uL Nucleated RBC % (auto) 0.0 (0.0-0.2) /100WBC Sodium 137 (135-145) mmol/L Potassium 3.5 (3.3-5.1) mmol/L Chloride 106 (96-108) mmol/L Carbon Dioxide 21 L (22-29) mmol/L Anion Gap 14 (12-20) BUN 3 L (9-16) mg/dL Creatinine 0.59 (0.5-1.4) mg/dL Estim Creat Clear Calc 120.7 Estimated GFR > 60 Random Glucose 108 (60-115) mg/dL Calcium 8.6 (8.4-10.2) mg/dL Beta HCG, Quant 88943 mIU/mL Urine Color Urine Appearance Urine pH (5.0-9.0) Ur Specific [place] (1.005-1.025) Urine Protein (Neg-Trace) mg/dL Urine Glucose (UA) (Negative) mg/dL Urine Ketones (Negative) mg/dL Urine Blood (Negative) Urine Nitrite (Negative) Ur Leukocyte Esterase (Negative) Blood Type 07/01/22 07/01/22 Range/Units 10:01 10:41 WBC (4.8-10.8) X10*3/uL RBC (4.20-5.50) X10*6/uL Hgb (12.0-16.0) g/dl Hct (37.0-47.0) % MCV (80.0-98.0) fL MCH (27.0-33.0) pg MCHC (31.0-35.0) g/dl RDW (11.0-16.0) % Plt Count (160-400) X10*3/uL MPV (9.4-12.3) fL Absolute Nucleated RBC (0.0-0.012) X10*3/uL Nucleated RBC % (auto) (0.0-0.2) /100WBC Sodium (135-145) mmol/L Potassium (3.3-5.1) mmol/L Chloride (96-108) mmol/L Carbon Dioxide (22-29) mmol/L Anion Gap (12-20) BUN (9-16) mg/dL Creatinine (0.5-1.4) mg/dL Estim Creat Clear Calc Estimated GFR Random Glucose (60-115) mg/dL Calcium (8.4-10.2) mg/dL Beta HCG, Quant mIU/mL Urine Color Yellow Urine Appearance Clear Urine pH 7.5 (5.0-9.0) Ur Specific [place] 1.020 (1.005-1.025) Urine Protein Negative (Neg-Trace) mg/dL Urine Glucose (UA) Negative (Negative) mg/dL Urine Ketones Trace (Negative) mg/dL Urine Blood Negative (Negative) Urine Nitrite Negative (Negative) Ur Leukocyte Esterase Negative (Negative) Blood Type A Positive Independent Interpretation I performed an independent interpretation of an: Ultrasound Interpretation: US with no HR, agree w/ radiologist read Radiology Impression Discussion of test interpretation with radiology: I have reviewed the radiologist's reading. Radiologist Impression: EXAMINATION:? US OBSTETRICAL ULTRASOUND CLINICAL INFORMATION:? Abdominal pain. COMPARISON:? None available.? LMP: 04/17/2022. Gestational age by maternal dates is 10 weeks 1 day. Estimated date of delivery by maternal dates is 01/22/2023. TECHNIQUE: Transabdominal imaging of pelvis is performed. ? FINDINGS: There is a single intrauterine gestational sac with? embryo/fetus, and cardiac activity. Yolk sac is not visualized. There is no significant subchorionic hemorrhage or hematoma. HR: Not visualized. CRL (crown rump length): ? 0.77 cm (6 weeks and 6 days). EVANGELINA (estimated date of delivery):? 02/18/2023 +/- 4 days. Gestational age by first ultrasound 06/27/2022 is 7 weeks 2 days and 02/15/2023 EVANGELINA. MATERNAL ADNEXA: ? ? The right maternal ovary measures 2.7 x 1.8 x 2.1 cm. It appears unremarkable. The left maternal ovary measures 2.5 x 1.0 x 1.0 cm There is no significant maternal adnexal mass.? No maternal pelvic ascites. US/US OB <= 14 weeks fetus IMPRESSION: 1. Single intrauterine gestation with ultrasound gestational age of 6 weeks and 6 days. 2. Estimated date of delivery is 02/18/2023 +/- 4 days. 3. Yolk sac is not visualized, likely collapsed and may be calcified. External Record Review External record reviewed: Office record, Outpatient record, Prior outpatient labs and Prior outpatient radiology Prescription Management I considered prescription management with: Pain Medication Medications Administered Discontinued Medications Generic Name Dose Route Start Last Admin Trade Name Freq PRN Reason Stop Dose Admin Acetaminophen 975 mg 07/01/22 08:08 07/01/22 08:15 Acetaminophen 325 Mg Tablet PO 07/01/22 08:09 975 mg ONCE ONE Administration Ondansetron HCl 4 mg 07/01/22 08:08 07/01/22 08:15 Ondansetron Odt 4 Mg Tab.Rapdis TRANSLINGU 07/01/22 08:09 4 mg ONCE ONE Administration Discharge Plan Discharge Clinical Impression: Missed Patient Disposition: Home, Self-Care Instructions: Miscarriage (ED) Additional Instructions: Your ultrasound showed similar findings to last week. Please go directly to the [facility] office to discuss further treatment plan Your urine test did not show infection If you develop new or worsening symptoms call 911 or come back to the ER for further evaluation. Prescriptions: No Action Vitamin Plus Low Iron 27 mg iron- 1 mg tablet 1 tab PO DAILY Qty: 90 3RF
[2022-07-01 08:01] LABS: Hematocrit 35.4 % (37.0-47.0); Hemoglobin 12.2 g/dl (12.0-16.0); Mean Corpuscular HGB Conc 34.5 g/dl (31.0-35.0); Mean Corpuscular Hemoglobin 28.8 pg (27.0-33.0); Mean Corpuscular Volume 83.7 fL (80.0-98.0); Mean Platelet Volume 9.4 fL (9.4-12.3); Platelet Count 249 X10*3/uL (160-400); Red Blood Count 4.23 X10*6/uL (4.20-5.50); Red Cell Distribution Width 13.4 % (11.0-16.0)
[2022-07-01] MEDS: Acetaminophen 325 MG TABLET 975 MG PO (08:15)
[2022-07-01] MEDS: Ondansetron ODT 4 MG TAB.RAPDIS TRANSLINGU (08:15)
[2022-07-01 08:23] LABS: HCG Quantitative 13611 mIU/mL
[2022-07-01 08:30] LABS: Anion Gap 14 (12-20); Blood Urea Nitrogen 3 mg/dL (9-16); Calcium 8.6 mg/dL (8.4-10.2); Carbon Dioxide 21 mmol/L (22-29); Chloride 106 mmol/L (96-108); Creatinine Clr Calc Pharmacy 120.7; Estimated Glomerular Filt Rate > 60; Glucose Random 108 mg/dL (60-115); Potassium 3.5 mmol/L (3.3-5.1); Sodium 137 mmol/L (135-145)
[2022-07-01 11:07] LABS: Appearance Urine Clear; Color Urine Yellow; Glucose Urine UA Negative (Negative); Leukocyte Esterase Urine Negative (Negative); Nitrite Urine Negative (Negative); PH 7.5 (5.0-9.0); Urine Blood Negative (Negative); Urine Ketones Trace mg/dL (Negative); Urine Protein Negative (Neg-Trace)
== END 2022-07-01 11:13 | disposition home or self-care (01) ==
PROVIDERS: Emergency Provider Emergency Medicine
DX: O02.1 Missed abortion (principal); O21.9 Vomiting of pregnancy, unspecified; Z3A.01 Less than 8 weeks gestation of pregnancy
CPT/HCPCS: 36415; 76801; 80048; 81003; 84702; 85027; 86900; 86901; 99202; 99284

== ENCOUNTER 2022-07-01 11:48 | Outpatient (REF) | payer OTHER, SELFPAY ==
[2022-07-02 06:29] LABS: CT PCR NOT DETECTED (Not Detect.); NG PCR NOT DETECTED (Not Detect.)
== END 2022-07-01 11:49 | disposition home or self-care (01) ==
LOC: HO.LNP 11:48
PROVIDERS: Visit Provider Obstetrics & Gynecology
DX: O02.1 Missed abortion (principal)
CPT/HCPCS: 0353U

== ENCOUNTER 2022-09-19 07:15 | Emergency (ER) | payer OTHER, SELFPAY ==
[2022-09-19 07:22] VITALS: BP 132/92; PULSE 100; RESP 20; TEMP 36.9; O2SAT 100; BMI 29.3
[2022-09-19] MEDS: Ondansetron ODT 4 MG TAB.RAPDIS TRANSLINGU (07:41)
--- NOTE | 2022-09-19 07:41 | ED_ITS ---
HPI - Anxiety General Chief Complaint: Anxiety Stated Complaint: vomiting Time Seen by Provider: 09/19/22 07:24 Source: patient Mode of arrival: ambulatory History of Present Illness HPI narrative: 22-year-old female who presents with a history of anxiety and panic attacks and reports recent increase in life stressors. She describes that she has had a miscarriage approximately 2 months ago, lost relationship and then lost her grandmother approximately 2 weeks ago. Patient reports that last night she began shaking uncontrollably and then began to feel nauseous, vomiting, feeling like she needed to have diarrhea as well as closing down of her vision and feeling like she was going to pass out. Patient denies passing out, denies any recent history of fevers, chills, abdominal pain, dysuria and reports last menstrual period was 7/8. Patient denies any sore throat, cough, shortness of breath, chest pain/palpitations. Patient then describes that this morning she woke up scared and had associated nausea and again felt like she needed to have diarrhea. Patient denies any suicidal ideation. Related Data Previous Rx's Medication Instructions Recorded misoprostol 200 mcg tablet 800 mcg vaginal ONCE 1 day #4 tabs 07/01/22 hydroxyzine HCl 25 mg tablet 25 mg PO BID PRN anxiety #7 tabs 09/19/22 Allergies Allergy/AdvReac Type Severity Reaction Status Date / Time No Known Allergies Allergy Verified 07/01/22 11:25 Review of Systems Review of Systems: Pertinent positives and negatives as stated in HPI [facility] Past Medical History Source: nursing notes reviewed Medical History Anxiety Missed No known health problems with uncertain viability care in first trimester Social History Social History Alcohol intake: never Patient Tobacco Use Status: Never used Tobacco Smoked in Last 30 Days: No Use of substances other than those prescribed or required for medical reasons: No Substance Use Type: Marijuana Advance Directives: No Sexual orientation: Straight/Heterosexual Gender identity: Female Physical Exam Vital Signs: Vital Signs: Last Vital Signs Temp 98.4 F 09/19/22 07:22 Pulse 100 09/19/22 07:22 Resp 20 09/19/22 07:22 BP 132/92 H 09/19/22 07:22 Pulse Ox 100 09/19/22 07:22 O2 Del Method Room Air 09/19/22 07:22 BMI result Body Mass Index 29.3 VITAL SIGNS: Reviewed. GENERAL: Well developed, well nourished, in no acute distress. HEAD: Normocephalic/atraumatic EYES: PERRLA, EOMI EARS: Ext canals without abnormality NOSE: Nares patent bilateral OROPHARYNX: no oral lesions noted, posterior pharynx clear NECK: Supple, no adenopathy LUNGS: Normal breath sounds. No adventitious sounds or accessory muscle use. SpO2<100> CARDIOVASCULAR: Regular rate and rhythm without noted murmurs ABDOMEN: Soft, non-tender, non-distended with bowel sounds. MUSCULOSKELETAL: No tenderness, deformities, or effusions noted on gross inspection. EXTREMITIES: No cyanosis, clubbing or edema. SKIN: Inspection of the skin reveals no rashes NEUROLOGIC: Alert and oriented x 4. Strength and sensation to light touch were grossly intact x 4. Medications Administered Discontinued Medications Generic Name Dose Route Start Last Admin Trade Name Freq PRN Reason Stop Dose Admin Hydroxyzine HCl 25 mg 09/19/22 07:41 09/19/22 07:45 Hydroxyzine Hcl 25 Mg Tablet PO 09/19/22 07:42 25 mg ONCE ONE Administration Ondansetron HCl 4 mg 09/19/22 07:18 09/19/22 07:41 Ondansetron Odt 4 Mg Tab.Rapdis TRANSLINGU 09/19/22 07:19 4 mg ONCE ONE Administration Medical Decision Making Medical Decision Making MDM Narrative: This is a 22-year-old female with history and clinical presentation of anxiety reaction, panic attack for reasonable increase in life stressors. She will receive Zofran, hydroxyzine and will proceed with urinalysis/urine . I have no clinical suspicion for infectious, anemia, metabolic derangements. Patient will be provided with resources for a therapist as well as group therapy for her recent losses. I reviewed all investigations and urinalysis does seem to demonstrate dirty urinalysis and and urine is negative. On re-evaluation after hydroxyzine patient is feeling much improved and will be discharged on a prescription. She is also provided with a list of outpatient therapist an groups. Differential Diagnosis Differential Diagnoses: The differential diagnosis associated with the presentation includes Please see the discussion above Admission/Observation Consideration of admission/observation: Escalation of care including admission/observation considered Please see the discussion above Lab Data MDM Lab Attestation statement: I reviewed the patient's lab results. Please see the discussion above Labs: Lab Results 09/19/22 09/19/22 Range/Units 07:42 07:42 Urine Color Yellow Urine Appearance Clear Urine pH 7.0 (5.0-9.0) Ur Specific [place] 1.010 (1.005-1.025) Urine Protein Negative (Neg-Trace) mg/dL Urine Glucose (UA) Negative (Negative) mg/dL Urine Ketones Negative (Negative) mg/dL Urine Blood Trace H (Negative) Urine Nitrite Negative (Negative) Ur Leukocyte Esterase Negative (Negative) Urine RBC 0-2 (0-2) /HPF Urine WBC 6-10 H (0-5) /HPF Ur Squamous Epith Cells 11-20 (0-2) /HPF Urine Bacteria 2+ (None Seen) Hyaline Casts 0-2 (0-2) /LPF Urine Test NEGATIVE (NEGATIVE) External Record Review External record reviewed: Outpatient record and Prior outpatient labs Discharge Plan Discharge Clinical Impression: Anxiety, Panic attack, Feeling grief Patient Disposition: Home, Self-Care Instructions: Anxiety (ED), Panic Attack (ED) Additional Instructions: 1. Do not hesitate to return to the emergency room for any concerns or a dditional resources that you may need. Prescriptions: New hydroxyzine HCl 25 mg tablet 25 mg PO BID PRN (Reason: anxiety) Qty: 7 0RF No Action misoprostol 200 mcg tablet 800 mcg vaginal ONCE 1 Days Qty: 4 0RF Rx Instructions: Insaert 800 mcg vaginal dose, 24 hours after Mifepristone dose by mouth Referrals: Cullen Mendoza MD [Primary Care Provider] -
[2022-09-19] MEDS: hydrOXYzine HCL 25 MG TABLET PO (07:45)
[2022-09-19 07:52] LABS: UPreg QC Valid YES; Urine Pregnancy NEGATIVE (NEGATIVE)
[2022-09-19 08:19] LABS: Appearance Urine Clear; Color Urine Yellow; Glucose Urine UA Negative (Negative); Leukocyte Esterase Urine Negative (Negative); Nitrite Urine Negative (Negative); UMIC TRIGGER UACC YES; Urine Blood Trace (Negative); Urine Ketones Negative (Negative); Urine Protein Negative (Neg-Trace)
[2022-09-19 08:26] LABS: Bacteria Urine 2+ (None Seen); Hyaline Casts Urine 0-2 /LPF (0-2); RBC Urine 0-2 /HPF (0-2); UACC Culture Trigger YES
[2022-09-19 09:11] VITALS: BP 116/69; PULSE 89; RESP 16; TEMP 36.7; O2SAT 100
--- NOTE | 2022-09-19 09:12 | PC.NURSE ---
calm, cooperative. reports prev shift meds from prev rn helped a lot. no pain verbalized. VSS. breathing well. talks w/o issue. no n/v
== END 2022-09-19 09:15 | disposition home or self-care (01) ==
PROVIDERS: Emergency Provider Student in an Organized Health Care Education/Training Program; PCP Internal Medicine
DX: F41.1 Generalized anxiety disorder (principal); F43.0 Acute stress reaction; F41.0 Panic disorder [episodic paroxysmal anxiety]; F43.9 Reaction to severe stress, unspecified; Z79.899 Other long term (current) drug therapy
CPT/HCPCS: 81001; 81003; 81025; 87086; 99283; 99284

== ENCOUNTER 2023-04-22 07:43 | Emergency (ER) | payer SELFPAY ==
--- NOTE | ~2023-04-22 | CT_ITS ---
EXAMINATION: CT ABDOMEN AND PELVIS WITH CONTRAST CLINICAL INFORMATION: Right lower quadrant pain, nausea and vomiting. Diarrhea. Evaluate for appendicitis. COMPARISON: Pelvic/OB ultrasound from 07/01/2022. TECHNIQUE: Multidetector volumetric images were obtained from the superior aspect of the liver through the pubic symphysis following administration 85 mL of Omnipaque 350 intravenous contrast. Sagittal and coronal reformatted images were obtained on the technologist's workstation. Oral contrast: No This CT examination was performed using dose optimization techniques as appropriate, variously including the following: *Automated exposure control *Adjustment of mA and/or kV according to patient size (this includes techniques or standardized protocols for targeted exams where dose is matched to indication/reason for exam; i.e. extremities or head) *Use of iterative reconstruction technique DLP: 486 mGy-cm FINDINGS: LUNG BASES: No pulmonary consolidation or pleural effusion. HEPATOBILIARY: The liver has normal size, shape, and attenuation. Gallbladder has a normal appearance. No radiopaque stones, wall thickening or pericholecystic fluid. No dilated bile ducts. PANCREAS: No edema, pancreatic ductal dilatation or mass. SPLEEN: Normal. ADRENAL GLANDS: Normal. KIDNEYS AND URETERS: The kidneys enhance symmetrically and have normal size and cortical thickness. No perinephric fluid collection, urolithiasis or hydroureteronephrosis. BLADDER: Normal. No calculi or wall thickening. BOWEL AND PERITONEUM: Stomach is unremarkable. No dilated loops of bowel. The appendix is not definitively seen; however, no inflammatory changes within the right lower quadrant. No overt bowel wall thickening or mesenteric fat stranding. No free fluid or pneumoperitoneum. ABDOMINAL WALL: Unremarkable. VASCULATURE: Abdominal aorta is normal in caliber and its branches are widely patent. Inferior vena cava is normal. LYMPH NODES: No pathologic sized lymph nodes in the abdomen or pelvis. No inguinal lymphadenopathy. PELVIC VISCERA: The uterus is retroverted and otherwise unremarkable. No adnexal mass. A trace, physiologic amount free fluid is seen within the lower pelvis. MUSCULOSKELETAL: Unremarkable. CT/CT abdomen pelvis w IV con IMPRESSION: No significant findings. No imaging evidence of an acute inflammatory process or obstruction along the gastrointestinal tract. Although the appendix is not definitively seen, there is no fat stranding in the right lower quadrant.
[2023-04-22 07:58] VITALS: BP 144/90; PULSE 98; RESP 18; TEMP 37; O2SAT 99; BMI 28.4
--- NOTE | 2023-04-22 08:18 | ED_ITS ---
HPI - Nausea/Vomiting/Diarrhea General Chief complaint: Nausea/Vomiting/Diarrhea Stated complaint: Vomiting, diarrhea Time Seen by Provider: 04/22/23 08:06 Source: patient and family (Father) Mode of arrival: ambulatory Limitations: no limitations History of Present Illness HPI Narrative: 23-year-old female who presents emergency department for evaluation of nausea, vomiting, diarrhea and abdominal pain. The patient states that she ate a shrimp boil dish that she bought from a restaurant at around 22:30 hours last night. She states that throughout the morning she had nausea and this morning at 05:00 hours she developed vomiting and diarrhea. She states she has had at least 5 episodes of vomiting and multiple episodes of watery diarrhea. There was no blood in the diarrhea or the emesis. She states she is also experiencing abdominal pain which she describes as a cramping like sensation. The patient had subjective fever, chills, rhinorrhea. She denied sore throat, cough, chest pain. She does feel short of breath. She denied frequency, urgency or dysuria. She states that her boyfriend also ate the shrimp boil dish and had nausea throughout the evening but no other symptoms. Related Data Previous Rx's Medication Instructions Recorded misoprostol 200 mcg tablet 800 mcg (4 x 200 mcg) vaginal ONCE 07/01/22 1 day #4 tabs hydroxyzine HCl 25 mg tablet 25 mg PO BID PRN anxiety #7 tabs 09/19/22 ibuprofen 400 mg tablet 400 mg PO TID PRN fever or pain 04/22/23 #30 tabs Allergies Allergy/AdvReac Type Severity Reaction Status Date / Time No Known Allergies Allergy Verified 04/22/23 07:57 Review of Systems 2 Review of Systems: Yes all other systems are reviewed and are negative [facility] Past Medical History [facility] Narrative: Social history: Patient denies tobacco use. She rarely drinks alcohol. She denies drug use. She is here in the emergency department with her father. Medical History with uncertain viability Missed Anxiety care in first trimester No known health problems Social History Social History Alcohol intake: never Patient Tobacco Use Status: Never used Tobacco Smoked in Last 30 Days: No Use of substances other than those prescribed or required for medical reasons: No Substance Use Type: Marijuana Advance Directives: No Advance Directives Information Provided: Yes Patient : No Sexual orientation: Straight/Heterosexual Gender identity: Female Physical Exam 2 Vital Signs: Vital Signs: Last Vital Signs Temp 98.3 F 04/22/23 12:19 Pulse 97 04/22/23 12:19 Resp 16 04/22/23 12:19 BP 120/80 04/22/23 12:19 Pulse Ox 98 04/22/23 12:19 O2 Del Method Room Air 04/22/23 12:19 BMI result Body Mass Index 28.4 Vital signs were normal except for an elevated blood pressure 144/90 Exam: General: Awake, alert in no distress Head: Normocephalic, atraumatic EENT: PERRL, Lids normal, sclera normal, conjunctiva normal, nose normal , ears normal, throat without erythema or exudates Neck: Supple, no adenopathy Lung: breath sounds symmetric, no wheezing, rales or rhonchi Chest: symmetric movement, nontender Heart: regular rate and rhythm, normal S1, S2 no murmurs or rubs Abdomen: soft, mild diffuse tenderness, mild to moderate right lower quadrant tenderness, no rebound, no voluntary or involuntary guarding nondistended, normal bowel sounds Back: no vertebral tenderness, no CVAT Extremities: no deformities, moves all extremities symmetrically Neuro: Awake, alert, oriented, normal speech, cranial nerves intact, moves all extremities symmetrically Psych: Pleasant, cooperative Medications Administered Discontinued Medications Generic Name Dose Route Start Last Admin Trade Name Freq PRN Reason Stop Dose Admin Diphenhydramine HCl 25 mg 04/22/23 11:39 04/22/23 12:00 Diphenhydramine Hcl 50 Mg/Ml Vial IVPUSH 04/22/23 11:40 25 mg ONCE ONE Administration Sodium Chloride 1,000 mls @ 999 mls/hr 04/22/23 08:18 04/22/23 10:30 Ns IV 04/22/23 09:18 Infused .Q1H1M STA Infusion Iohexol 85 ml 04/22/23 10:30 04/22/23 10:31 Iohexol 350 Mg/Ml 100 Ml Infus..Btl IV 04/22/23 10:31 85 ml ONCE ONE Administration Ketorolac Tromethamine 15 mg 04/22/23 08:18 04/22/23 09:30 Ketorolac Tromethamine 15 Mg/Ml Vial IVPUSH 04/22/23 08:19 15 mg ONCE STA Administration Metoclopramide HCl 10 mg 04/22/23 11:39 04/22/23 12:03 Metoclopramide Hcl 10 Mg/2 Ml Vial IVPUSH 04/22/23 11:40 10 mg ONCE STA Administration Morphine Sulfate 4 mg 04/22/23 11:39 04/22/23 12:02 Morphine Sulfate 4 Mg/Ml Cartridge IVPUSH 04/22/23 11:40 4 mg ONCE STA Administration Protocol Ondansetron HCl 4 mg 04/22/23 08:18 04/22/23 09:30 Ondansetron Hcl 4 Mg/2 Ml Vial IVPUSH 04/22/23 08:19 4 mg ONCE ONE Administration Medical Decision Making Medical Decision Making [facility] Narrative: 23-year-old female history of anxiety who presents emergency department for evaluation of nausea, vomiting, diarrhea. The patient ate a shrimp boil at 22:30 hours and developed nausea overnight with nausea, vomiting and diarrhea starting at 05:00 hours. Patient's vital signs revealed an elevated blood pressure. Abdominal exam revealed diffuse tenderness with increased tenderness in the right lower quadrant area. Differential diagnosis: ?Includes but is not limited to food poisoning, viral syndrome, appendicitis, pancreatitis, colitis Following evaluation was ordered: CBC, CMP, lipase, PTT, urinalysis, quantitative beta-hCG, COVID-19, influenza, RSV, CT scan of the abdomen pelvis with IV contrast rule out appendicitis Patient was initially treated with the following: IV insert, normal saline x1 L, Toradol 15 mg IV and Zofran 4 mg IV Course: 12:49 My interpretation patient's laboratory evaluation as follows: WBC elevated 20,800 with left shift 92% neutrophils 3.9% lymphocytes. PTT was normal. CMP was normal. Quantitative beta-hCG was below detectable limits. Urinalysis specific gravity consistent with dehydration, positive blood. Microscopic revealed 0-2 RBCs, 0-5 WBCs, 11-20 squamous cells, 4+ bacteria-this is a non clean catch specimen she has no symptoms for urinary tract infection. CT scan of the abdomen pelvis did not reveal any clear etiology for the patient's pain, the patient's appendix was not visualized but there was no inflammatory changes noted by the radiologist in the area where the appendix was suspected to be. Patient did get improvement of her pain with the above treatment but then her pain and nausea returned. She was given morphine 4 mg IV, Reglan 10 mg IV and Benadryl 25 mg IV. Patient is feeling significantly better. Patient's exam does still reveal diffuse abdominal tenderness with increased tenderness palpation of the right lower quadrant. I did discuss early appendicitis verses viral gastroenteritis verses the patient's father. This time, the patient will be discharged home and started on ibuprofen, Tylenol and Zofran ODT. The patient is to return to the emergency department in 24 hours for symptoms are not resolved or sooner if her symptoms get worse. Admission/Observation Consideration of admission/observation: Escalation of care including admission/observation considered Lab Data MDM Lab Attestation statement: I reviewed the patient's lab results. 04/22/23 09:21 04/22/23 09:21 Labs: Lab Results 04/22/23 04/22/23 04/22/23 Range/Units 08:28 09:21 11:08 WBC 20.8 H (4.8-10.8) X10*3/uL RBC 5.21 D (4.20-5.50) X10*6/uL Hgb 14.2 (12.0-16.0) g/dl Hct 42.6 D (37.0-47.0) % MCV 81.8 (80.0-98.0) fL MCH 27.3 (27.0-33.0) pg MCHC 33.3 (31.0-35.0) g/dl RDW 14.0 (11.0-16.0) % Plt Count 349 D (160-400) X10*3/uL MPV 9.8 (9.4-12.3) fL Immature Gran % (Auto) 0.4 (0.0-0.4) % Neut % (Auto) 92.1 H (45-73) % Lymph % (Auto) 3.9 L (20-40) % [place] % (Auto) 3.1 (2-11) % Eos % (Auto) 0.3 (0-4) % Baso % (Auto) 0.2 (0-2) % Lymph # (Auto) 0.8 L (1.2-4.9) X10*3/uL [place] # (Auto) 0.6 (0.1-1.2) X10*3/uL Eos # (Auto) 0.1 (0.0-0.4) X10*3/uL Baso # (Auto) 0.0 (0.0-0.2) X10*3/uL Abs Immat Gran (auto) 0.08 H (0.00-0.03) X10*3/uL Absolute Neuts (auto) 19.2 H (2.0-8.3) x10*3/uL Absolute Nucleated RBC 0.000 (0.0-0.012) X10*3/uL Nucleated RBC % (auto) 0.0 (0.0-0.2) /100WBC Smear Tech's Comments VERIFIED APTT 31.1 (26.0-36.8) SEC Sodium 139 (135-145) mmol/L Potassium 3.7 (3.3-5.1) mmol/L Chloride 106 (96-108) mmol/L Carbon Dioxide 23 (22-29) mmol/L Anion Gap 14 (12-20) BUN 14 (9-16) mg/dL Creatinine 0.72 (0.5-1.4) mg/dL Estim Creat Clear Calc 98.6 Estimated GFR > 60 Random Glucose 110 (60-115) mg/dL Calcium 9.7 D (8.4-10.2) mg/dL Total Bilirubin 0.5 (0.0-1.0) mg/dL AST 16 (5-31) U/L ALT 9 (0-31) U/L Alkaline Phosphatase 77 (39-117) U/L Total Protein 8.4 H (6.5-8.0) g/dL Albumin 4.8 (3.5-5.0) g/dL Lipase 15 (8-78) U/L Beta HCG, Quant < 2 mIU/mL Urine Color Yellow Urine Appearance Clear Urine pH 5.5 (5.0-9.0) Ur Specific [place] >= 1.030 H (1.005-1.025) Urine Protein Negative (Neg-Trace) mg/dL Urine Glucose (UA) Negative (Negative) mg/dL Urine Ketones Trace (Negative) mg/dL Urine Blood Trace H (Negative) Urine Nitrite Negative (Negative) Ur Leukocyte Esterase Negative (Negative) Urine RBC 0-2 (0-2) /HPF Urine WBC 0-5 (0-5) /HPF Ur Squamous Epith Cells 11-20 (0-2) /HPF Urine Bacteria 4+ (None Seen) Hyaline Casts 0-2 (0-2) /LPF Influenza Type A (PCR) NEGATIVE (Negative) Influenza Type B (PCR) NEGATIVE (Negative) RSV RNA Qual (PCR) NEGATIVE (Negative) SARS-CoV-2 RNA (RT-PCR) NEGATIVE (Negative) Radiology Impression Discussion of test interpretation with radiology: I have reviewed the radiologist's reading. Radiologist Impression: CT abdomen pelvis w IV con IMPRESSION: No significant findings. No imaging evidence of an acute inflammatory process or obstruction along the gastrointestinal tract. Although the appendix is not definitively seen, there is no fat stranding in the right lower quadrant. Dictated By: Rory Smith MD Independent Historian Clinical information obtained from an independent historian. History obtained from or confirmed by: Parent (Mother and father) Prescription Management I considered prescription management with: Pain Medication and Other (Antiemetics) Discharge Plan Discharge Clinical Impression: Abdominal pain Qualifiers: Abdominal location: generalized Qualified Code(s): R10.84 - Generalized abdominal pain Patient Disposition: Home, Self-Care Instructions: Abdominal Pain (ED) Additional Instructions: Your white blood cell count was elevated otherwise your blood work was unremarkable. Your test was negative. Your urine did not reveal any signs of an infection at this time. The CT scan of your abdomen pelvis with IV contrast did not reveal any significant abnormalities. The radiologist was not able to see your appendix but there was no inflammation noted in the area with the appendix was expected to be. At this time I do not have a clear cause for your pain and symptoms. It is possible that you could have food poisoning, a viral infection or early appendicitis. If your symptoms get worse or if your pain is not completely resolved in 24 hours then please return to the emergency department tomorrow morning for re- evaluation. I am here in the emergency department tomorrow morning from 07:00am until 4:00pm and I can re-evaluate you. Take ibuprofen 200 mg pills, 2 pills every 6 hours as needed for pain or fever. Take Tylenol (acetaminophen) 500 mg pills, 2 pills every 6 hours as needed for pain or fever. Take Zofran ODT 4 mg pills, 1 pill dissolved in your mouth every 8 hours as needed for nausea and vomiting, For the next 24 hours, stay on a JONO diet (bananas, rice, applesauce, tea and toast). Follow-up with your doctor in 2 days. Please return to the emergency department if your symptoms get worse or if you develop any symptoms that are concerning to you. Prescriptions: New ibuprofen 400 mg tablet 400 mg PO TID PRN (Reason: fever or pain) Qty: 30 0RF No Action hydroxyzine HCl 25 mg tablet 25 mg PO BID PRN (Reason: anxiety) Qty: 7 0RF misoprostol 200 mcg tablet 800 mcg vaginal ONCE 1 Days Qty: 4 0RF Rx Instructions: Insaert 800 mcg vaginal dose, 24 hours after Mifepristone dose by mouth
[2023-04-22 08:25] VITALS: BP 125/83; PULSE 86; RESP 16; TEMP 36.8; O2SAT 98
[2023-04-22 09:15] LABS: Influenza A PCR NEGATIVE (Negative); Influenza B PCR NEGATIVE (Negative); Resp Syncy Virus RNA Qual PCR NEGATIVE (Negative); SARS COV2 PCR INHOUSE NEGATIVE (Negative)
[2023-04-22] MEDS: 0.9 % Sodium Chloride 1,000 ML 999 ML IV (09:29)
[2023-04-22] MEDS: Ketorolac Tromethamine 15 MG/ML VIAL IVPUSH (09:30)
[2023-04-22] MEDS: ondansetron HCL 4 MG/2 ML VIAL IVPUSH (09:30)
[2023-04-22 09:31] LABS: Basophils Percent Auto 0.2 % (0-2); Eosinophils Absolute Auto 0.1 X10*3/uL (0.0-0.4); Eosinophils Percent Auto 0.3 % (0-4); Hematocrit 42.6 % (37.0-47.0); Hemoglobin 14.2 g/dl (12.0-16.0); Imm Gran Abs Auto 0.08 X10*3/uL (0.00-0.03); Imm Gran Pct Auto 0.4 % (0.0-0.4); Lymphocytes Absolute Auto 0.8 X10*3/uL (1.2-4.9); Lymphocytes Percent Auto 3.9 % (20-40); MANUAL DIFF FLAG SCAN; Mean Corpuscular HGB Conc 33.3 g/dl (31.0-35.0); Mean Corpuscular Hemoglobin 27.3 pg (27.0-33.0); Mean Corpuscular Volume 81.8 fL (80.0-98.0); Mean Platelet Volume 9.8 fL (9.4-12.3); Monocytes Absolute Auto 0.6 X10*3/uL (0.1-1.2); Monocytes Percent Auto 3.1 % (2-11); Neutrophils Absolute Auto 19.2 x10*3/uL (2.0-8.3); Neutrophils Percent Auto 92.1 % (45-73); Platelet Count 349 X10*3/uL (160-400); Red Blood Count 5.21 X10*6/uL (4.20-5.50); SCAN SMEAR FLAG 1; White Blood Count 20.8 X10*3/uL (4.8-10.8)
[2023-04-22 09:38] LABS: Partial Thromboplastin Time 31.1 SEC (26.0-36.8)
[2023-04-22 09:45] VITALS: BP 117/76; PULSE 86; RESP 16; TEMP 37.1; O2SAT 100
[2023-04-22 09:49] LABS: Alanine Aminotransferase 9 U/L (0-31); Albumin Level 4.8 g/dL (3.5-5.0); Alkaline Phosphatase 77 U/L (39-117); Anion Gap 14 (12-20); Aspartate Amino Transferase 16 U/L (5-31); Bilirubin Total 0.5 mg/dL (0.0-1.0); Blood Urea Nitrogen 14 mg/dL (9-16); Calcium 9.7 mg/dL (8.4-10.2); Carbon Dioxide 23 mmol/L (22-29); Chloride 106 mmol/L (96-108); Creatinine Clr Calc Pharmacy 98.6; Estimated Glomerular Filt Rate > 60; Glucose Random 110 mg/dL (60-115); Lipase 15 U/L (8-78); Potassium 3.7 mmol/L (3.3-5.1); Sodium 139 mmol/L (135-145); Total Protein 8.4 g/dL (6.5-8.0)
[2023-04-22 09:50] LABS: HCG Quantitative < 2 mIU/mL
[2023-04-22 09:57] LABS: SLIDE REVIEW VERIFIED
[2023-04-22 10:00] VITALS: BP 124/74; PULSE 85; RESP 16; TEMP 36.8; O2SAT 100
[2023-04-22] MEDS: iohexoL 350 MG/ML 100 ML INFUS..BTL 85 ML IV (10:31)
[2023-04-22 11:17] LABS: Appearance Urine Clear; Color Urine Yellow; Glucose Urine UA Negative (Negative); Leukocyte Esterase Urine Negative (Negative); Nitrite Urine Negative (Negative); PH 5.5 (5.0-9.0); Specific Gravity - Urine >= 1.030 (1.005-1.025); UMIC TRIGGER UACC YES; Urine Blood Trace (Negative); Urine Ketones Trace mg/dL (Negative); Urine Protein Negative (Neg-Trace)
[2023-04-22 11:19] LABS: Bacteria Urine 4+ (None Seen); Hyaline Casts Urine 0-2 /LPF (0-2); RBC Urine 0-2 /HPF (0-2); WBC Urine 0-5 /HPF (0-5)
[2023-04-22] MEDS: diphenhydrAMINE HCL 50 MG/ML VIAL 25 MG IVPUSH (12:00)
[2023-04-22] MEDS: Morphine Sulfate 4 MG/ML CARTRIDGE IVPUSH (12:02)
[2023-04-22] MEDS: Metoclopramide HCl 10 MG/2 ML VIAL IVPUSH (12:03)
[2023-04-22 12:19] VITALS: BP 120/80; PULSE 97; RESP 16; TEMP 36.8; O2SAT 98
== END 2023-04-22 13:43 | disposition home or self-care (01) ==
PROVIDERS: Emergency Provider Emergency Medicine Emergency Medical Services
DX: R10.84 Generalized abdominal pain (principal); R11.2 Nausea with vomiting, unspecified; R19.7 Diarrhea, unspecified; R50.9 Fever, unspecified; J34.89 Other specified disorders of nose and nasal sinuses; Z11.52 Encounter for screening for COVID-19; Z20.822 Contact with and (suspected) exposure to COVID-19; Z79.899 Other long term (current) drug therapy
CPT/HCPCS: 0241U; 36415; 74177; 80053; 81001; 83690; 84702; 85025; 85730; 96361; 96374; 96375; 99284; 99285; J1200; J1885; J2270; J2405; J2765; Q9967

== ENCOUNTER 2024-03-15 11:41 | Emergency (ER) | payer MEDICAID, SELFPAY ==
--- NOTE | ~2024-03-15 | XR_ITS ---
EXAMINATION: XR CHEST CLINICAL INFORMATION: cough, sob, fever COMPARISON: 12/14/2020. TECHNIQUE: 2 views of the chest were obtained. FINDINGS: The cardiac, hilar, and mediastinal contours are normal. The lungs are clear bilaterally. There is no pneumothorax or pleural effusion. There is no focal osseous or soft tissue abnormality. XR/XR chest 2V IMPRESSION: Normal chest. Electronically signed by: Nitish Ribera MD 03/15/2024 01:26 PM ERICK
[2024-03-15 12:46] VITALS: BP 136/87; PULSE 110; RESP 18; TEMP 37.7; O2SAT 97; BMI 32.2
--- NOTE | 2024-03-15 12:47 | ED_ITS ---
HPI - URI/Sore Throat General Chief Complaint: Upper Respiratory Symptoms Stated Complaint: fever symptoms Time Seen by Provider: 03/15/24 15:16 Source: patient, RN notes reviewed and old records reviewed Mode of arrival: ambulatory History of Present Illness ED Provider: Sharon Rivas PA-C HPI Narrative: 24-year-old female with a past medical history anxiety, presenting to the ED complaining of fever, chills, myalgias, chest discomfort with cough, SOB x few days. Denies known sick contacts. Related Data Previous Rx's ?Medication ?Instructions ?Recorded misoprostol 200 mcg tablet 800 mcg (4 x 200 mcg) vaginal ONCE 07/01/22 1 day #4 tabs hydroxyzine HCl 25 mg tablet 25 mg PO BID PRN anxiety #7 tabs 09/19/22 acetaminophen 500 mg tablet 1,000 mg (2 x 500 mg) PO Q6H PRN 04/22/23 (Tylenol Extra Strength) fever or pain #20 tabs ibuprofen 400 mg tablet 400 mg PO TID PRN fever or pain 04/22/23 #30 tabs ondansetron 4 mg disintegrating 4 mg PO Q6-8H PRN nausea and 04/22/23 tablet vomiting #14 tabs Allergies Allergy/AdvReac Type Severity Reaction Status Date / Time No Known Allergies Allergy Verified 03/15/24 12:49 Review of Systems Review of Systems: Yes all other systems are reviewed and are negative Constitutional: Constitutional: Reports as per [facility] Past Medical History Attestation statement: The following information was validated with the patient. Source: old records reviewed Medical History with uncertain viability Missed Anxiety care in first trimester No known health problems Social History Social History Alcohol intake: never Patient Tobacco Use Status: Never used Tobacco Substance Use Type: Marijuana Advance Directives: No Advance Directives Information Provided: No Do you have a plan to hurt others: No Plan Sexual orientation: Straight/Heterosexual Gender identity: Female Physical Exam Vital Signs: Vital Signs: Last Vital Signs Temp 99.5 F 03/15/24 16:22 Pulse 105 H 03/15/24 16:22 Resp 16 03/15/24 16:22 BP 119/76 03/15/24 16:22 Pulse Ox 99 03/15/24 16:22 O2 Del Method Room Air 03/15/24 16:22 BMI result Body Mass Index 32.2 Const: General: cooperative, healthy appearing and no acute distress Orientation/consciousness: patient oriented x3 Limitations: no limitations HEENT: Head: Yes normal to inspection and Yes atraumatic Ears: hearing grossly normal bilaterally and TM's normal bilaterally General nose exam: Normal external nose present Face and sinus: Yes normal facial exam Mouth: Normal oral and palatal mucosa present and no drooling Throat: Yes posterior oropharynx normal, Yes uvula midline, No peritonsillar mass and No uvula laterally displaced Eyes: General: appearance normal, both eyes and all related structures EOM: EOMs intact bilaterally Neck: Neck: Yes normal visual inspection and Yes no meningeal signs Resp: Effort & Inspection: normal respiratory effort and no respiratory distress Auscultation: clear to auscultation bilaterally, no crackles and no wheezes Cardio: Rate: tachycardic Heart sounds: S1 normal heart sound present and S2 normal heart sound present Skin: Rashes: no rashes Wounds: no wounds Neuro: General: patient oriented x3, tone normal and no meningeal signs Cranial nerves: Yes CN's II-XII intact bilaterally Gait exam (Neuro): Normal gait present Extrem: General: Yes normal to inspection Course Course Course Narrative: This is a Rapid Medical Exam performed in triage by Sharon Rivas PA-C. Full HPI, ROS and PE to be performed by primary ED provider. 24yo F presenting to the ED c/o fever, chills, body aches, CP w/coughing, SOB, x couple days PE: talking in complete sentences, ambulating w/steady gait Plan: SARS, Rapid strep, CXR 1517--XR chest 2V IMPRESSION: Normal chest. -influenza a positive -1622--HR improved after p.o. Motrin given Results discussed with patient including worrisome signs and symptoms and strict return precautions, and when to return to the emergency department. They verbalized understanding and feel safe for discharge at this time. Medications Administered Discontinued Medications Generic Name Dose Route Start Last Admin Trade Name Freq PRN Reason Stop Dose Admin Ibuprofen 600 mg 03/15/24 15:18 03/15/24 15:24 Ibuprofen 600 Mg Tablet PO 03/15/24 15:19 600 mg ONCE ONE Administration Medical Decision Making Medical Decision Making [facility] Narrative: 24-year-old female with a past medical history anxiety, presenting to the ED complaining of fever, chills, myalgias, chest discomfort with cough, SOB x few days. On exam tachycardic, low-grade temp 99.9 degrees, NAD, nontoxic appearing, lungs CTA, oropharynx WNL. Concern for viral illness. Rule out. Lower suspicion for acute ACS/PE or DVT Plan: Viral testing, rapid strep, CXR Please refer to course for remaining clinical decision making, interpretation of labs/imaging results, and discussions with consultants and/or family members. Differential Diagnosis Differential Diagnoses: The differential diagnosis associated with the presentation includes As above Admission/Observation Consideration of admission/observation: Escalation of care including admission/observation considered Lab Data [facility] Lab Attestation statement: I reviewed the patient's lab results. Labs: Lab Results 03/15/24 03/15/24 Range/Units 13:53 13:54 Influenza Type A (PCR) POSITIVE A (Negative) Influenza Type B (PCR) NEGATIVE (Negative) RSV RNA Qual (PCR) NEGATIVE (Negative) SARS-CoV-2 RNA (RT-PCR) NEGATIVE (Negative) S. pyogenes GrpA ALPHONSE Negative (Negative) Independent Interpretation I performed an independent interpretation of an: Plain X-Ray Radiology Impression Discussion of test interpretation with radiology: I have reviewed the radiologist's reading. External Record Review External record reviewed: Inpatient record, Office record, Outpatient record, Prior outpatient labs, Prior outpatient radiology, Primary care record and Outside ED record Tests considered The following testing was considered but not selected: As above Prescription Management I considered prescription management with: Pain Medication and Antibiotic Chronic Conditions Patient?s care impacted by: Other Social Determinants Patient?s care significantly limited by Social Determinants of Health including: Other Social Determinant of Health Discharge Plan Discharge Clinical Impression: Influenza Patient Disposition: Home, Self-Care Instructions: Influenza (DC) Additional Instructions: You have the flu No antibiotics are indicated at this time Make sure you are staying hydrated. Drink plenty of fluids. Rest Alternate Tylenol and Motrin at home as needed for body aches and fever Follow-up with your doctor. If symptoms persist or worsen return to the emergency department *If you are a child & not tolerating liquid or urinating for more than 6 hours, or fevers are uncontrolled with medications at home, return to the emergency department* Prescriptions: No Action ibuprofen 400 mg tablet 400 mg PO TID PRN (Reason: fever or pain) Qty: 30 0RF acetaminophen [Tylenol Extra Strength] 500 mg tablet 1,000 mg PO Q6H PRN (Reason: fever or pain) Qty: 20 0RF ondansetron 4 mg tablet,disintegrating 4 mg PO Q6-8H PRN (Reason: nausea and vomiting) Qty: 14 0RF hydroxyzine HCl 25 mg tablet 25 mg PO BID PRN (Reason: anxiety) Qty: 7 0RF misoprostol 200 mcg tablet 800 mcg vaginal ONCE 1 Days Qty: 4 0RF Rx Instructions: Insaert 800 mcg vaginal dose, 24 hours after Mifepristone dose by mouth Referrals: ED Physician,Generic [Physician] - Physician,None [Primary Care Provider] - Stand Alone Forms: Work/School Release Interventions: ED Discharge Assessment Last Done: 03/15/24 15:21 Discharge Date/Time: 03/15/24 16:30 Print Language: Hungarian
[2024-03-15 14:06] LABS: IDNOW Serial# 08D9AD1C; Strep A Nucleic Acid Negative (Negative)
[2024-03-15 14:36] LABS: Influenza A PCR POSITIVE (Negative); Influenza B PCR NEGATIVE (Negative); Resp Syncy Virus RNA Qual PCR NEGATIVE (Negative); SARS COV2 PCR INHOUSE NEGATIVE (Negative)
[2024-03-15 15:18] VITALS: BP 119/76; PULSE 118; RESP 16; TEMP 38.2; O2SAT 99
[2024-03-15 15:21] VITALS: BP 119/76; PULSE 118; RESP 16; TEMP 38.2; O2SAT 99
[2024-03-15] MEDS: Ibuprofen 600 MG TABLET PO (15:24)
[2024-03-15 16:22] VITALS: BP 119/76; PULSE 105; RESP 16; TEMP 37.5; O2SAT 99
--- OUTSIDE RECORDS SUMMARY | 2024-03-15 17:00 | XMS_ITS | Data Portability ---
Author Organization [facility] [address] Address [address] [place] [id number] Assessment No assessment recorded. Plan of Treatment Reminders Order Date Submit Date Provider Last Modified By Organization Details Last Modified Time Details Appointments None record ed. Lab None record ed. Referral None record ed. Procedures None record ed. Surgeries None record ed. Imaging None record ed. Medication Orders None record ed. Patient TargetsNo targets recorded. Patient InstructionsNo instructions recorded. Reason for Referral None Reported. Procedures Surgical History Date Name Laterality Status Provider Name and Address Organization Details Recorded Time 3 OC- Physical completed TEJINDER [employer] Tyche 10/08/2022 09:00:54 Imaging Results None recorded. Procedure Notes None recorded. Medical Equipment None Reported. Allergies No known drug allergies Medications Not known to be on any medication Vitals Date Recorded Body height Body mass index (BMI) Body weight Oxygen saturation Oxygen saturation in Arterial blood by Pulse oximetry Pain severity - 0-10 verbal numeric rating [Score] - Reported Heart rate Respiratory rate Body temperature Systolic blood pressure Diastolic blood pressure Provider Name and Address Organization Details Last Updated DateTime 3 152.4 cm 27.5 kg/m2 43708.5 2 g 100 % 100 % 0 83 /min 16 /min 97.7 [degF] 110 mm[Hg] 64 mm[Hg] TEJINDER Gyros[employer] Tyche 3 09:00:04 Social History None recorded. Functional Status None recorded. Mental Status None recorded. Family History Nothing Reported. Medical History No medical history recorded. Gynecological History Statement/Question Response Date of LMP 08/31/2022 Is there any chance of ? No LMP Definite Obstetrics History GPAL:G 0 P 0 0 0 0 Past Encounters Encounter ID Performer Location Encounter Start Date Encounter Closed Date Diagnosis/Indication Diagnosis SNOMED-CT Code Diagnosis ICD10 Code Diagnosis Note [id number] LORETA PRADO [address] [facility] [address] [place] [address] 10/08/2022 08:27:13 10/08/2022 09:20:10 History and physical examination, pre-employment 543713347 Z02.1 Health Concerns Section Related Observation LastModified by Organization Detai ls LastModified Time None Recorded Concern Status LastModified by Organization Details LastModified Time None Recorded Advance Directives Directive None Recorded Payers Encounter Date Sequence Insurance Name Policy Number Policy Chacon Covered Member ID Chacon Member ID Guarantor Name 10/08/2022 OC-PAY AT TIME OF SERVICE 2022 Oc-Pay At Time Of Service KALAPDDEANNA Ross [facility] Episode No OBEpisode recorded.
== END 2024-03-15 16:30 | disposition home or self-care (01) ==
LOC: HO.ED 15:33
PROVIDERS: Physician Assistant; Emergency Provider Emergency Medicine
DX: J10.1 Influenza due to other identified influenza virus with other respiratory manifestations (principal); R50.9 Fever, unspecified; R05.9 Cough, unspecified; R06.02 Shortness of breath; M79.10 Myalgia, unspecified site; R07.89 Other chest pain; Z03.818 Encounter for observation for suspected exposure to other biological agents ruled out; Z79.899 Other long term (current) drug therapy
CPT/HCPCS: 0241U; 71046; 87651; 99283

== ENCOUNTER → 2024-03-15 12:48 | Outpatient (BNV) | payer MEDICAID, SELFPAY | PROVIDERS: Visit Provider Radiology Diagnostic Radiology | DX: R05.9 Cough, unspecified (principal); R06.02 Shortness of breath; R50.9 Fever, unspecified | CPT/HCPCS: 71046 ==

== ENCOUNTER 2024-11-02 08:00 | Emergency (ER) | payer OTHER, SELFPAY ==
[2024-11-02] VITALS (9 sets, daily range): BP systolic 96–133; BP diastolic 58–87; PULSE 73–103; RESP 15–18; TEMP 36.4–36.9; O2SAT 99–100; BMI 32.9
--- NOTE | ~2024-11-02 | XR_ITS ---
EXAMINATION: XR CHEST CLINICAL INFORMATION: SoB, syncope. Pneumonia COMPARISON: March 15, 2024. TECHNIQUE: Frontal view of the chest was obtained. FINDINGS: No hyperinflation. Pulmonary reticular pattern. No consolidation, pleural effusion or pneumothorax. Cardiomediastinal silhouette size is normal. Mild S-shaped curvature of the thoracic spine. XR/XR chest 1V IMPRESSION: No gross acute airspace disease. Electronically signed by: Ollie Veliz MD 11/02/2024 08:59 AM EDT
--- NOTE | ~2024-11-02 | US_ITS ---
EXAMINATION: US TRIPLEX LOWER EXTREMITY, BILATERAL CLINICAL INFORMATION: Syncopal episode COMPARISON: None available. TECHNIQUE: Color-flow triplex imaging with spectral analysis and compression Doppler were performed on the bilateral lower extremities. FINDINGS: Respiratory variation, normal compression and augmented flow are noted throughout the bilateral lower extremities. The visualized common femoral vein, superficial femoral vein, profunda femoral vein, popliteal vein and midcalf peroneal and posterior tibial venous segments show no evidence of deep venous thrombosis bilaterally. US/US venous duplex LE BI IMPRESSION: No evidence of deep venous thrombosis involving the bilateral lower extremities. Electronically signed by: Brian Argueta MD 11/02/2024 12:34 PM EDT
--- NOTE | ~2024-11-02 | US_ITS ---
EXAMINATION: US OBSTETRICAL ULTRASOUND CLINICAL INFORMATION: Syncopal episode, positive beta hCG COMPARISON: None available. LMP: 09/13/2024. Gestational age by maternal dates is 7 weeks 1 day. Estimated date of delivery by maternal dates is 06/20/2025. TECHNIQUE: Transabdominal and transvaginal pelvic ultrasound was performed through the pelvis FINDINGS: There is a single intrauterine gestational sac with visible yolk sac, embryo, and cardiac activity. There is no significant subchorionic hemorrhage or hematoma. HR: 150 beats per minute. CRL (crown rump length): 1.0 cm (7 weeks 2 days EVANGELINA (estimated date of delivery): 06/19/2025 MATERNAL ADNEXA: The right maternal ovary measures 3.2 x 1.9 x 2.5 cm. The left maternal ovary measures 2.8 x 1.0 x 1.4 cm. There is no significant maternal adnexal mass. No maternal pelvic ascites. US/US OB pelvic and transvaginal IMPRESSION: Single living intrauterine . Size and dates are concordant. Estimated gestational age is 7 weeks 1 day with estimated date of delivery 06/20/2025. Electronically signed by: rBian Argueta MD 11/02/2024 12:41 PM EDT
--- NOTE | 2024-11-02 08:09 | ECG_ITS ---
Test Reason : syncope Blood Pressure : */* mmHG Vent. Rate : 88 BPM Atrial Rate : 88 BPM P-R Int : 148 ms QRS Dur : 74 ms QT Int : 364 ms P-R-T Axes : 58 57 29 degrees QTcB Int : 440 ms Normal sinus rhythm Normal ECG When compared with ECG of 14-Dec-2020 11:38, No significant change was found Referred By: Generic ED Physician Electronically Signed By: Bob Fernández
--- NOTE | 2024-11-02 08:40 | ED_ITS ---
HPI - General Adult General Chief complaint: Syncope Stated complaint: Syncopal episodes, pt is Time Seen by Provider: 11/02/24 08:27 Source: patient Mode of arrival: ambulatory Limitations: no limitations History of Present Illness ED Provider: Stephan George HPI narrative: 24-year-old female 6 weeks presents to the ED for syncopal episodes. Patient states syncopal episode in the shower and had another to this morning. Patient denies ever having any abdominal pain vaginal discharge or vaginal bleeding. Patient has not yet had an official ultrasound. Related Data Previous Rx's ?Medication ?Instructions ?Recorded misoprostol 200 mcg tablet 800 mcg (4 x 200 mcg) vagin al ONCE 07/01/22 1 day #4 tabs hydroxyzine HCl 25 mg tablet 25 mg PO BID PRN anxiety #7 tabs 09/19/22 acetaminophen 500 mg tablet 1,000 mg (2 x 500 mg) PO Q 6H PRN 04/22/23 (Tylenol Extra Strength) fever or pain #20 tabs ibuprofen 400 mg tablet 400 mg PO TID PRN fever or p ain 04/22/23 #30 tabs ondansetron 4 mg disintegrating 4 mg PO Q6-8H PRN naus ea and 04/22/23 tablet vomiting #14 tabs Allergies Allergy/AdvReac Type Severity Reaction Status Date / Time No Known Allergies Allergy Verified 11/02/24 08:07 Review of Systems 2 Review of Systems: Four 5 syncopal episodes SOB Yes all other systems are reviewed and are negative PMFSH Past Medical History Medical History with uncertain viability Missed Anxiety care in first trimester No known health problems Social History Social History Alcohol intake: never Patient Tobacco Use Status: Never used Tobacco Substance Use Type: Marijuana Sexual orientation: Straight/Heterosexual Gender identity: Female Physical Exam ED Vital Signs: Vital Signs - 24 hr 11/02/24 08:05 11/02/24 09:47 11/02/24 09:47 Temperature 97.6 F Pulse Rate 90 73 74 Respiratory Rate 18 Blood Pressure 133/87 106/59 L 96/69 Pulse Oximetry 99 Oxygen Delivery Method Room Air 11/02/24 09:48 11/02/24 10:20 11/02/24 11:11 Temperature 98.4 F Pulse Rate 73 93 Respiratory Rate 16 Blood Pressure 106/58 L 114/74 Pulse Oximetry 100 99 Oxygen Delivery Method Room Air Room Air 11/02/24 11:16 11/02/24 11:17 11/02/24 11:20 Temperature Pulse Rate 92 99 103 H Respiratory Rate Blood Pressure 119/70 111/68 121/76 Pulse Oximetry Oxygen Delivery Method 11/02/24 14:05 Temperature 98.4 F Pulse Rate 99 Respiratory Rate 15 Blood Pressure 121/76 Pulse Oximetry 99 Oxygen Delivery Method BMI result Body Mass Index 32.9 Const General: cooperative, healthy appearing, comfortable, no acute distress, well developed, alert, awake and Physically active [facility] Head: Yes normal to inspection, Yes No palpable skull fracture present, Yes normocephalic and Yes atraumatic Eyes General: appearance normal, both eyes and all related structures Neck Neck: Yes normal visual inspection, Yes full ROM, Yes no lymphadenopathy, Yes no meningeal signs, Yes trachea midline, Yes supple, No anterior neck swelling and No tender Chest Chest palpation & inspection: normal inspection of the chest and normal palpation of entire chest wall Resp Effort & Inspection: normal respiratory effort and able to speak in complete sentences Auscultation: clear to auscultation bilaterally Cardio Jugular venous distension: no JVD Heart sounds: S1 normal heart sound present and S2 normal heart sound present GI Inspection: Yes normal to inspection Palpation (GI): Soft to palpation, not firm, nontender and no guarding General: Yes no CVA tenderness Back/Spine/Pelvis Back: no CVA tenderness and No back tenderness Skin General skin exam: no rashes or lesions noted, elasticity normal and turgor normal Neuro General: Normal light touch and pain sensation, no meningeal signs, no focal motor deficits, CN's II-XI intact bilaterally and normal sensation to monofilament Extrem Other: Bilateral lower extremity negative for swelling, pitting edema, or calf tenderness. General: Yes normal to inspection, Yes full ROM and Yes capillary refill normal Psych Appearance: grossly normal, well kempt and not disheveled Medications Administered Discontinued Medications Generic Name Dose Route Start Last Admin Trade Name Freq PRN Reason Stop Dose Admin Sodium Chloride 1,000 mls @ 999 mls/hr 11/02/24 08:33 11/02/24 12:18 Ns IV 11/02/24 09:33 Infused .Q1H1M STA Infusion Medical Decision Making Medical Decision Making [facility] Narrative: 24-year-old female 6 weeks presents to the ED for syncopal episode last night and this morning . Patient denies any chest pain vaginal bleeding vaginal discharge or abdominal pain. patient presently denies any shortness of breath, pleurisy, leg swelling, or calf pain. EKG labs ordered. Chest x-ray ordered. We will order transvaginal abdominal ultrasound. 11:34: Orthostatics negatives. Beta hCG positive. D-dimer negative. First troponin negative. EKG negative STEMI. 1:19pm: Patient's 2 troponins negative. Ultrasound of lower extremity came back negative for DVT. PERC Score 1. Case discussed with Dr. Jaime who states no indication for chest CTA due to patient having negative dimer with negative ultrasound for DVT. Patient has never syncopized during ED visit and has been hemodynamically stable. Patient explained worrisome signs and informed to return to the ED immediately. Not suspecting in her dissection, brain bleed, PE, myocarditis, pericarditis, PA, brain aneurysm, stroke, or any other life- threatening etiology. Ultrasound shows IUP with heart rate. Patient given copy of labs, EKG, and imaging for follow-up. Differential Diagnosis Differential Diagnoses: The differential diagnosis associated with the presentation includes (Ectopic , DVT, orthostatic hypotension) Admission/Observation Consideration of admission/observation: Escalation of care including admission/observation considered Lab Data [facility] Lab Attestation statement: I reviewed the patient's lab results. 11/02/24 09:37 11/02/24 09:37 Labs: Lab Results 11/02/24 11/02/24 11/02/24 Range/Units 09:37 11:13 12:56 WBC 12.2 H (4.8-10.8) X10*3/uL RBC 4.44 (4.20-5.50) X10*6/uL Hgb 12.2 (12.0-16.0) g/dl Hct 35.8 L (37.0-47.0) % MCV 80.6 (80.0-98.0) fL MCH 27.5 (27.0-33.0) pg MCHC 34.1 (31.0-35.0) g/dl RDW 14.1 (11.0-16.0) % Plt Count 330 (160-400) X10*3/uL MPV 9.4 (9.4-12.3) fL Immature Gran % (Auto) 0.3 (0.0-0.4) % Neut % (Auto) 77.0 H (45-73) % Lymph % (Auto) 15.7 L (20-40) % Cass % (Auto) 6.1 (2-11) % Eos % (Auto) 0.7 (0-4) % Baso % (Auto) 0.2 (0-2) % Lymph # (Auto) 1.9 (1.2-4.9) X10*3/uL Cass # (Auto) 0.7 (0.1-1.2) X10*3/uL Eos # (Auto) 0.1 (0.0-0.4) X10*3/uL Baso # (Auto) 0.0 (0.0-0.2) X10*3/uL Abs Immat Gran (auto) 0.04 H (0.00-0.03) X10*3/uL Absolute Neuts (auto) 9.4 H (2.0-8.3) x10*3/uL Absolute Nucleated RBC 0.000 (0.0-0.012) X10*3/uL Nucleated RBC % (auto) 0.0 (0.0-0.2) /100WBC PT 11.5 (10.9-12.4) SEC INR 1.0 (0.9-1.1) D-Dimer High Sensitivty < 150 NG/ML Sodium 138 (135-145) mmol/L Potassium 3.6 (3.3-5.1) mmol/L Chloride 106 (96-108) mmol/L Carbon Dioxide 24 (22-29) mmol/L Anion Gap 12 (12-20) BUN 8 L (9-16) mg/dL Creatinine 0.54 (0.5-1.4) mg/dL Estim Creat Clear Calc 140.7 Estimated GFR > 60 Random Glucose 94 (60-115) mg/dL Calcium 9.1 D (8.4-10.2) mg/dL Magnesium 2.0 (1.6-2.6) mg/dL Total Bilirubin 0.2 (0.0-1.0) mg/dL Direct Bilirubin < 0.2 (0.0-0.5) mg/dL AST 17 (5-31) U/L ALT 9 (0-31) U/L Alkaline Phosphatase 64 (39-117) U/L Troponin I High Sens < 2.7 < 2.7 (<3.5-17.0) ng/L NT-Pro-B Natriuret Pep 21.8 (<300) pg/mL Total Protein 7.2 (6.5-8.0) g/dL Albumin 4.3 (3.5-5.0) g/dL Beta HCG, Quant 01436 mIU/mL Urine Color Yellow Urine Appearance Clear Urine pH 6.5 (5.0-9.0) Ur Specific [place] <= 1.005 (1.005-1.025) Urine Protein Negative (Neg-Trace) mg/dL Urine Glucose (UA) Negative (Negative) mg/dL Urine Ketones Negative (Negative) mg/dL Urine Blood Negative (Negative) Urine Nitrite Negative (Negative) Ur Leukocyte Esterase Trace H (Negative) Urine RBC 0-2 (0-2) /HPF Urine WBC 0-5 (0-5) /HPF Ur Squamous Epith Cells 6-10 (0-2) /HPF Urine Bacteria Trace (None Seen) Hyaline Casts 0-2 (0-2) /LPF COVID-19 (ODALYS) Negative (Negative) COVID-19 Clin Com See Note Influenza Type A (ALPHONSE) Negative (Negative) Influenza Type B (ALPHONSE) Negative (Negative) Influenza A & B Note See Note Independent Interpretation I performed an independent interpretation of an: EKG (Negative STEMI) Radiology Impression Discussion of test interpretation with radiology: I have reviewed the radiologist's reading. Independent Historian Clinical information obtained from an independent historian. History obtained from or confirmed by: Other (patient) Discharge Plan Discharge Clinical Impression: Syncope, Patient Disposition: Home, Self-Care Instructions: (ED), Syncope (ED) Additional Instructions: You were seen in our Emergency Department for an early test being positive and abdominal pain/and or vaginal bleeding. It is very early on and your symptoms require repeat testing and monitoring. Your initial ultrasound did not confirm a in your uterus. You need repeat testing of your blood test (hcg) in 48 hours. Another Ultrasound may also need to be done in 5 days, this should be determined by your outpatient provider. These tests can be done at your primary care office, OBGYN office, or the Emergency Department if you cannot reach your outside providers. After discharge please monitor your symptoms and seek immediate care for bleeding heavier than a period, severe abdominal pain, fainting, or any other concerns. Please see list of local OBGYN providers below: OBGYN and Midwifery [facility] [address] [phone] [facility] [address] [phone] OBGYN and Midwifery [facility] [address] [phone] [phone] Return to the ED immediately for any abdominal pain, nausea, vomiting, chest pain, shortness of breath, leg swelling, calf pain, chest pain on inspiration, syncopal episode, or any other concerning symptoms. Prescriptions: No Action ibuprofen 400 mg tablet 400 mg PO TID PRN (Reason: fever or pain) Qty: 30 0RF acetaminophen [Tylenol Extra Strength] 500 mg tablet 1,000 mg PO Q6H PRN (Reason: fever or pain) Qty: 20 0RF ondansetron 4 mg tablet,disintegrating 4 mg PO Q6-8H PRN (Reason: nausea and vomiting) Qty: 14 0RF hydroxyzine HCl 25 mg tablet 25 mg PO BID PRN (Reason: anxiety) Qty: 7 0RF misoprostol 200 mcg tablet 800 mcg vaginal ONCE 1 Days Qty: 4 0RF Rx Instructions: Insaert 800 mcg vaginal dose, 24 hours after Mifepristone dose by mouth Stand Alone Forms: Work/School Release Interventions: ED Discharge Assessment Last Done: 11/02/24 14:05 Discharge Date/Time: 11/02/24 14:11 Print Language: Upper Sorbian
--- OUTSIDE RECORDS SUMMARY | 2024-11-02 09:40 | XMS_ITS | Clinical Summary ---
Author Organization [facility] Address [address] [place], [place] [id number] Phone Care Team Providers Care Residential Insurance Inspector Name Role Phone Pcp, Unknown Primary Care Provider Unavailabl e Social History Tobacco Use Types Packs/Day Years Used Date Smoking Tobacco: Never Assessed Comments Unknown Sex and Gender Information Value Date Recorded Sex Assigned at Not on file Legal Sex Female 10:28 AM EDT Gender Identity Not on file Sexual Orientation Not on file Plan of Treatment Not on file Medical Devices Not on file Insurance [employer] PART[employer] PARTNERSHIP [employer] PART[employer] HEALTHY PARTNERSHIP [employer] HE[employer] HE[employer] PARTNERSH[employer] ACO Care Teams Residential Insurance Inspector Relationship Specialty Start Date End Date Pcp, Unknown PCP - General 05/07/21 Additional Source Comments The information contained in this document represents components of the legal health record. It is not the complete legal health record.[facility]
[2024-11-02 10:10] LABS: Troponin-I High Sensitivity < 2.7 ng/L (<3.5-17.0)
--- NOTE | 2024-11-02 10:21 | PC.NURSE ---
Pt roomed an dplaced on 02/11 monitor- VSS NAD orthos' negative. Pt ambulated to and from BR without dizziness. asking for Po snack. IVF infusing as ordered
[2024-11-02 11:20] LABS: Appearance Urine Clear; Glucose Urine UA Negative (Negative); PH 6.5 (5.0-9.0); Specific Gravity - Urine <= 1.005 (1.005-1.025); UMIC TRIGGER UACC YES
[2024-11-02 13:19] LABS: Troponin-I High Sensitivity < 2.7 ng/L (<3.5-17.0)
== END 2024-11-02 14:11 | disposition home or self-care (01) ==
PROVIDERS: Physician Assistant; Emergency Provider Emergency Medicine
DX: O26.91 Pregnancy related conditions, unspecified, first trimester (principal); R55 Syncope and collapse; R11.0 Nausea; R60.0 Localized edema; R06.02 Shortness of breath; R10.2 Pelvic and perineal pain; Z3A.01 Less than 8 weeks gestation of pregnancy; Z79.899 Other long term (current) drug therapy; Z11.52 Encounter for screening for COVID-19
CPT/HCPCS: 36415; 71045; 76801; 76817; 80048; 80076; 81001; 83735; 83880; 84484; 84702; 85025; 85379; 85610; 87502; 87635; 93005; 93970; 96360; 96361; 99284; 99285

== ENCOUNTER → 2024-11-02 08:09 | Outpatient (BNV) | payer OTHER, SELFPAY | PROVIDERS: Emergency Provider Emergency Medicine; Visit Provider Internal Medicine Cardiovascular Disease | DX: R55 Syncope and collapse (principal) | CPT/HCPCS: 93010 ==

== ENCOUNTER → 2024-11-02 08:36 | Outpatient (BNV) | payer OTHER, SELFPAY | PROVIDERS: Emergency Provider Emergency Medicine; Visit Provider Radiology Diagnostic Radiology | DX: Z3A.01 Less than 8 weeks gestation of pregnancy (principal); R06.02 Shortness of breath | CPT/HCPCS: 71045; 76801; 76817; 93970 ==